=== PATIENT | female | born 1960 | race Caucasian/White ===

== ENCOUNTER 2016-09-11 14:40 | Inpatient (IN) | payer BC ==
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
[2016-09-11 15:13] LABS: Hematocrit 40 % (35-47); Hemoglobin 13.1 g/dl (12.0-16.0); Mean Corpuscular HGB Conc 33 g/dl (31-36); Mean Corpuscular Hemoglobin 30 pg (27-31); Mean Corpuscular Volume 91 fL (80-97); Mean Platelet Volume 8 um3 (7.4-10.4); Red Blood Count 4.38 10^6/ul (4.0-5.4); Red Cell Distribution Width 14 % (10.5-15); White Blood Count 15.7 10^3/ul (3.5-10.8)
--- NOTE | 2016-09-11 15:14 | RAD ---
Indication: Code kulkarni. Difficulty with speech. Unresponsive. History of EtOH. History of prior stroke. Comparison: None. Technique: Noncontrast CT vertex of skull through foramen magnum. Report: Approximate 1.6 cm AP by 3.4 cm transverse region of kulkarni matter white matter obscuration with hypodensity at the RIGHT parietal lobe from the cephalocaudal level of the carranza radiata to the centrum semiovale without mass effect most consistent with encephalomalacia related to a late subacute or chronic infarct. Negative for additional ivan matter white matter obscuration. Negative for intra or extra-axial hemorrhage. Unremarkable cerebral sulci, ventricles, and basal cisterns. Unremarkable orbital contents. Negative for calvarial or skull base fracture or suspicious focal osseous lesion. Clear visualized paranasal sinuses and mastoid air spaces. Negative for scalp hematoma. IMPRESSION: 1. Negative for intracranial hemorrhage. 2. Approximate 1.6 cm AP by 3.4 cm transverse region of kulkarni matter white matter obscuration with hypodensity at the RIGHT parietal lobe from the cephalocaudal level of the carranza radiata to the centrum semiovale without mass effect most consistent with encephalomalacia related to a late subacute or chronic infarct. Results discussed with Dr. Gonzalez 09/11/2016 3:09 PM EDT
[2016-09-11] MEDS ORDERED: Alteplase* 100 MG VIAL ONE (15:23)
[2016-09-11 15:30] LABS: ALT 13 U/L (7-52); AST 13 U/L (13-39); Albumin 4.1 g/dL (3.2-5.2); Alkaline Phosphatase 105 U/L (34-104); Anion Gap 8 mmol/L (2-11); BUN/Creatinine Ratio 6.1 (8-20); Blood Urea Nitrogen 6 mg/dL (6-24); CO2 Carbon Dioxide 25 mmol/L (22-32); Calcium 9.1 mg/dL (8.6-10.3); Chloride 107 mmol/L (101-111); Creatine Kinase 64 U/L (10-223); EGFR African American 75.2 (>60); EGFR Non-African American 58.5 (>60); Globulin 2.6 g/dL (2-4); Glucose 81 mg/dL (70-100); Magnesium 1.9 mg/dL (1.9-2.7); Potassium 3.7 mmol/L (3.5-5.0); Sodium 140 mmol/L (133-145); Total Protein 6.7 g/dL (6.4-8.9)
[2016-09-11] MEDS ORDERED: Iodixanol* (CONTRAST) 320 MG/ML 100 ML SDV IV ONE (15:36)
[2016-09-11] MEDS: ALTEPLASE IV ONE ×2 (15:37→17:03)
[2016-09-11 15:46] LABS: Urine Bilirubin Negative (Negative); Urine Glucose Negative (Negative); Urine Nitrite Negative (Negative)
[2016-09-11 15:58] LABS: Benzodiazepine Urine Screen None Detected (None Detect)
[2016-09-11 15:59] LABS: Alcohol < 10 mg/dL (<10)
[2016-09-11] MEDS ORDERED: ALTEPLASE IV ONE (16:00)
--- NOTE | 2016-09-11 16:36 | RAD ---
INDICATION: CVA. Status post TPA. COMPARISON: September 11, 2016 CT. TECHNIQUE: Multidetector CT images were obtained from the aortic arch to the vertex of the head with 80 mL Visipaque 320 IV contrast. Arterial phase of enhancement. Multiplanar reformation including maximum intensity projection. 3-D arterial volume rendering. Stenosis estimations based on denominator of distal arterial diameter. NECK ANGIOGRAM REPORT: Variant common origin of the RIGHT brachiocephalic and LEFT common carotid arteries from the aortic arch with associated calcific and noncalcific plaque without hemodynamic significant resulting ostial stenosis of either vessel. Occluded stent at the ostium and proximal segment of the LEFT subclavian artery. Patent LEFT common carotid to LEFT subclavian bypass graft. Patent RIGHT subclavian artery. Negative for significant atherosclerotic plaque, stenosis, or dissection at the RIGHT common or internal carotid arteries. The proximal segment of the RIGHT external carotid artery is occluded for a short segment with collateral reconstitution. Minimal calcific plaque at the LEFT carotid bulb and proximal external carotid artery with resulting approximate 70% short segment stenosis. Negative for LEFT internal carotid artery stenosis. Patent RIGHT dominant and smaller LEFT vertebral arteries with both vertebral arteries contributing to the basilar artery. Unremarkable cerebellar artery origins. Postsurgical change of anterior C6-C7 fusion with solid osseous fusion across the disc space. NECK ANGIOGRAM IMPRESSION: 1. No evidence for RIGHT or LEFT common or internal carotid artery stenosis. 2. Short segment occlusion of the proximal RIGHT external carotid artery with collateral reconstitution. 3. Approximate 70% short segment stenosis at the proximal segment of the LEFT external carotid artery. 4. Occluded stent at the ostium and proximal segment of the LEFT subclavian artery. Patent LEFT common carotid to LEFT subclavian bypass graft. HEAD ANGIOGRAM REPORT: No significant abnormality of the intracranial internal carotid arteries or the M1 or M2 segments of the middle cerebral arteries. Patent A1 and A2 anterior cerebral artery segments. No definitive anterior communicating artery visualized. Unremarkable basilar artery and cerebellar artery origins. Patent posterior cerebral arteries are supplied by the posterior circulation with normal variant hypoplastic or aplastic posterior communicating arteries. No intracranial aneurysm or vascular malformation evident. HEAD ANGIOGRAM IMPRESSION: No central intracranial large vessel arterial occlusion or stenosis. CPT II: CPT II Codes: 3100F
--- NOTE | 2016-09-11 17:28 | ED ---
Danette Solis Erika, scribed for Katherine Nieves MD on 09/11/16 at 1724 . Progress - Progress Note Progress Note: At 17:24 - updated with final plan. in agreement Pt to ICU s/p tpa Course/Dx - Diagnoses Provider Diagnoses: Acute CVA (cerebrovascular accident), Received intravenous tissue plasminogen activator (tPA) in emergency department Discharge - Discharge Plan Condition: Guarded Disposition: ADMITTED TO [facility] Referrals: Lester Lang DO [Primary Care Provider] - The documentation as recorded by the Danette ray Erika accurately reflects the service I personally performed and the decisions made by Ezequiel cummings Laura, MD.
[2016-09-11] MEDS ORDERED: Morphine INJ* 2 MG/ML 1 ML SYRINGE ONE ×2 (17:49→20:00)
[2016-09-11] MEDS ORDERED: Morphine INJ* 2 MG/ML 1 ML SYRINGE IV ONE (18:00)
[2016-09-11] MEDS ORDERED: LORazepam INJ* 2 MG/ML 1 ML VIAL IV PUSH PRN ×2 (18:07→20:10)
[2016-09-11] MEDS: NS 0.9% 1000 ML* 1,000 ML IV SCH ×2 (19:19→22:15)
[2016-09-11] MEDS: Morphine INJ* 2 MG/ML 1 ML SYRINGE IV PRN (19:53)
[2016-09-11] MEDS ORDERED: LORazepam INJ* 2 MG/ML 1 ML VIAL ONE (19:59)
[2016-09-11] MEDS ORDERED: Morphine INJ* 4 MG/ML 1 ML SYRINGE IV PRN (20:10)
[2016-09-11] MEDS ORDERED: NS 0.9% 250 ML* 250 ML IV ONE (23:00)
--- NOTE | 2016-09-11 23:36 | HP ---
HISTORY AND PHYSICAL: DATE OF ADMISSION: 09/11/16 PRIMARY CARE PROVIDER: Dr. Lester Lang. CHIEF COMPLAINT: "Stroke." HISTORY OF PRESENT ILLNESS: Bessie Hahn is a 56-year-old female with history of 2 ischemic CVAs in the past, the most recent one approximately a year ago. At that point, she was hospitalized in a hospital in [place]. The patient today was found by her unresponsive. Apparently, the patient's was working when Ms. Hahn called him saying that she feels unwell and her blood pressure must be high. When he came home to check on her, she was sitting in a chair unresponsive with a blood pressure cuff on her arm. She was brought into the emergency department for evaluation and she was deemed to be a good tPA candidate. The patient was noted to be nonverbal with left- sided hemiparesis. She also was noted to have decreased responsiveness. Dr. Gonzalez saw the patient in evaluation and recommended treatment with tPA. TPA was injected in the emergency department. The patient is currently being seen in the intensive care unit after transfer from the ED. Just during my evaluation, the patient was noted to be anxious and appeared to be crying. She received 1 mg of IV morphine. Right now, she is mildly sedated. PAST MEDICAL HISTORY: Obtained from past medical records include: 1. Depression with psychotic features with evaluation and mental health admission at the end of the year of 2015. 2. History of 2 strokes, both of them ischemic. At that point, the patient was evaluated in [place]. 3. 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 4. History of UT in 2004. 5. History of carpal tunnel release. 6. Hypertension. 7. Dyslipidemia. 8. Total abdominal hysterectomy and bilateral salpingo-oophorectomy. 9. Appendectomy. 10. x2. 11. Question of LV thrombus in the past. The patient in 2012 was on Coumadin that apparently was discontinued 2 years later. HOME MEDICATIONS: Include: 1. Budesonide 6 mg daily. 2. Nicotine inhaler on a p.r.n. basis. 3. Ibuprofen 10 mg every 8 hours p.r.n. 4. Vitamin B12 1000 mcg daily. 5. Vitamin D 1000 units daily. 6. Ambien 10 mg daily. 7. Lorazepam 0.5 mg b.i.d. 8. Gabapentin 10 mg 3 times a day p.r.n. 9. Plavix 75 mg daily. 10. Lipitor 40 mg daily. 11. Metoprolol tartrate 12.5 mg b.i.d. 12. Potassium chloride 30 mEq daily. 13. Zantac 150 mg at bedtime. 14. Effexor XR 75 mg daily. ALLERGIES: AMOXICILLIN, ATROPINE, AUGMENTIN, DEMEROL, LOMOTIL, HYDROXYZINE, SULFA DRUGS. AUGMENTIN caused rash, ATROPINE caused rash, BENADRYL caused also hives, LOMOTIL caused rash, HYDROXYZINE and SULFA DRUGS also caused rash. FAMILY HISTORY: Unobtainable from this nonverbal patient. SOCIAL HISTORY: As per patient's , the patient smokes 1 pack per day and she started when she was a teenager. She had history of alcohol dependence , but she quit in the year of 1999. She has history of occasionally smoking cannabis. REVIEW OF SYSTEMS: Unobtainable from this nonverbal patient. PHYSICAL EXAMINATION GENERAL: The patient is a 56-year-old female who is lying comfortably in bed. The patient appears in no acute distress. The patient appears to be alert, although mildly sedated after administration of morphine. VITAL SIGNS: Blood pressure of 137/56, heart rate of 60 and regular, respiratory rate 17, oxygen saturation 100% on 3 L of oxygen nasal cannula, temperature 97.8. HEENT: Head: Atraumatic, normocephalic. Eyes: Extraocular muscles appear to be intact. Pupils are equal and reactive. Oropharynx: Clear. Mucosa dry. NECK: Supple. No JVD, no bruit bilaterally. RESPIRATORY: Clear to auscultation bilaterally. CARDIOVASCULAR: Regular rate and rhythm. No murmur. ABDOMEN: Soft, nontender. Bowel sounds present in all 4 quadrants. EXTREMITIES: There is no edema. +2 pulses bilaterally. No clubbing cyanosis. NEUROLOGIC: Very limited. The patient appears to have generalized decrease in responsiveness and generalized weakness. The right hand irrigator is 4+/5 and there is no pronator drift. The left hand, she has minimal proximal strength and is trying to abduct her arm during the evaluation at 3+/5. The left hand is a 3/5. Bilateral lower extremities once again very difficult to evaluate. The patient appears to be at 4/5 in right lower extremity and 3+/5 in the left lower extremity. She appears to have Babinski positive bilaterally. Please note that occasionally during the evaluation, the patient is shaking as if she had rigors or chills but then when I asked her to relax, she is able to do that. She in fact relaxed very nicely after administration of morphine. Please note, on evaluation of the oral cavity she is unable to protrude her tongue to command. She opens her mouth to command. The tongue appears midline. Cranial nerves II through XII grossly appear intact since patient has no visible facial droop or facial asymmetry. It is very difficult to elicit any good response for the patient to evaluate her further. SKIN: On evaluation of the skin, no ecchymotic areas or rashes noted. DIAGNOSTIC STUDIES/LABORATORY DATA: White blood cell count of 15.7, hemoglobin of 13.1, hematocrit of 40, platelets of 357. Sodium was 140, potassium 3.7, chloride 107, carbon dioxide 25, BUN 6, creatinine 0.99. Liver function tests were unremarkable. Brain natriuretic peptide was 59, beta HCG 4.9, lactic acid 0.9. Urinalysis was unremarkable apart from low specific gravity at 1.005. Urine toxicology report was grossly unremarkable. Head CTA obtained in the emergency department showed no central intracranial large vessel arterial occlusion or stenosis. The neck CT angiogram showed "no evidence of right or left common internal carotid artery stenosis. Short segment occlusion of the proximal right external carotid artery with collateral reconstitution. Approximately 70% short segment stenosis at the proximal segment of the left external carotid artery. Occluded stent in the ostium of the proximal segment of the left subclavian artery. Patent left common carotid to left subclavian bypass graft. " The patient's EKG showed normal sinus rhythm with a heart rate of 74 beats per minute with negative T-waves in leads V3 to V5. Comparing with prior EKGs from 2015, the changes are chronic. Brain CT obtained in the ED, impression: "Negative for intracranial hemorrhage. Approximately 1.6 cm AP to 3.4 cm transverse region of white matter obscuration with hypodensity at the right parietal lobe from cephalocaudal level of the carranza radiata to the centrum semiovale without mass effect most consistent with encephalomalacia related to subacute or chronic infarct." ASSESSMENT AND PLAN: This 56-year-old female who presents with symptoms of cerebrovascular accident. The patient is going to be admitted to the intensive care unit for tPA protocol. Neuro checks are going to be ordered every 1 hour. The patient is going to be on bed rest. Neurology consult is appreciated and Dr. Gonzalez saw patient in consultation already. In regards to history of anxiety, the patient is going to be placed on Ativan intravenously on a p.r.n. basis as well as morphine for pain control. For GI protection while n.p.o., the patient is going to be placed on Protonix intravenously. The patient also is going to be placed on for speech therapy evaluation as well as physical therapy evaluation and occupational therapy evaluation in the morning. We will try to continue to titrate patient's intravenous fluids to keep her blood pressures above 140 range. Currently, the patient's systolic pressure is 127. For DVT prophylaxis, the patient already received tPA. Sequential compression devices were ordered. The patient's code status is full. Her surrogate is her , Devon. TIME SPENT: Approximately 62 minutes were spent on admission of this patient, more than half the time was spent in evaluation of the patient ICU. CC: Dr. Gonzalez; Dr. Lester Lang* [id number]/[facility] #: [id number] MTDD
--- NOTE | 2016-09-12 00:34 | CONS ---
CONSULTATION REPORT: DATE OF CONSULT: DATE OF DICTATION: 09/11/16 PATIENT OF: Dr. Krishnamurthy. HISTORY: This is a 56-year-old right-handed woman with known prior stroke who presented today at [facility] to with sudden onset of left hemiparesis. She had called her and she felt as if her blood pressure was very high. He came immediately in within minutes and found her collapsed on the floor with the blood pressure cuff on. She was able to move her right side at that time, but could not speak well. Then, he called for an ambulance and she was brought into the hospital, and she had prior stroke, but none for more than 2 years. She had an episode of confusion back in 2014 and was seen by the [facility] up at [place] and no stroke was found. However, prior to that, she had left- sided weakness secondary to a large vessel of stroke at that point in time. PAST MEDICAL HISTORY: She has past history of what is labeled in her past chart as 2 strokes and she has had subclavian artery blockage and went through a stent procedure up at [facility] and then she underwent a subclavian artery bypass. 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 She has had recurrent hypokalemia, hypertension, and hyperlipidemia. She has had a psych hospitalization in March of 2016 for suicidal ideation and has had prior evaluation in 1999 for alcohol detox and depression. MEDICATIONS: Include: 1. Budesonide 6 mg daily. 2. Nicotine inhaler 10 mg p.r.n. 3. Vitamin B12 1000 mcg daily. 4. Vitamin D 1000 mg daily. 5. Ambien 10 mg p.r.n. at bedtime. 6. Lorazepam 0.5 mg b.i.d. 7. Plavix 75 mg daily. 8. Lipitor 40 mg daily. 9. Metoprolol 12.5 mg b.i.d. 10. Ranitidine 20 mg at bedtime. 11. Potassium 40 mEq daily. 12. Venlafaxine 75 mg daily. ALLERGIES: She is allergic to AMOXICILLIN, ATROPINE, CLAVULANIC ACID, DIPHENHYDRAMINE. FAMILY HISTORY: She was unable to give a history. SOCIAL HISTORY: She has past history of alcohol dependence and used to smoke cannabis in the past. She is a one pack per day cigarette smoker. Her has told me that they have been having significant marital difficulties with recent arguments yesterday and today and she had an argument with her daughter this morning. REVIEW OF SYSTEMS: She was unable to give any review of systems. PHYSICAL EXAM: On exam, temperature 97.4, pulse 67, respirations 16, blood pressure 121/80. I evaluated her several times today 3:00, 3:30 to 3:40 and then at 5:30. Her initial NIH stroke scale was 24 which will be described in a bit and is documented in the chart. Immediately prior to receiving TPA, her exam is as follows: She was opening her eyes to command and could squeeze fingers on the right side. She did not speak, but nodded her head briefly yes and seen to mouth words. Cranial nerves II through XII were intact other than left facial weakness. Initially when I first saw her, she had downward gaze, but this is not present immediately prior to CT scan. Pupils were equal, round , and reactive to light and she reacted to threat bilaterally. Motor exam: She was able to move her right arm and leg against gravity and could wiggle tones on the right to command. She had no strength in the left arm. She initially could not move at all on the left, but then wiggled toes and had some slight movement against gravity. She had decreased sensation to light touch as best I can tell on the left side, but not the right side. Reflexes were 2. Toes were downgoing. Chest: Clear. Cardiovascular: Regular rate and rhythm. Abdomen is soft with positive bowel sounds. When I saw her at 5:30, she could say her name when asked, but just said the first syllable and was hesitant and spoken in an odd way. There was also some fluctuation in her exam at that point on the right side. She could not lift her right arm up against resistance but when held up, it did not drop down. She could wiggle her toes and have a family life counselor in her right hand and she could wiggle her left toes. DIAGNOSTIC STUDIES/LAB DATA: Her CT scan showed a stroke of indeterminate age in her right parietal lobe and had no prior scans for comparison. I contacted Dr. Chavez because prior CT scans were obtained up at [facility] and they faxed them to [facility] and he compared both and there was an old stroke dating back at least 2014 and was not anything that had occurred within the past few weeks' time. She also had a CTA, which did not show any intracranial or carotid occlusion, but showed her subclavian bypass as well as clotting of her stent, which is a prior finding. Dr. Chavez had called him back after the CTA was done and we compared those films. She had a white count of 15.7, hematocrit of 40, platelets of 357. INR is 0.98. She had normal CMP other than creatinine 0.99, alk phos of 105. Beta HCG was 4.9. Her UA was normal. Toxicology was sent and it was negative as well as negative serum alcohol. ASSESSMENT: The patient received TPA beginning roughly within 1 hour and 45 minutes to 2 hours of symptom onset after discussion of the pros and cons with the . I have also discussed this to that given her history and also the stress she is under as well as her exam especially up in the ICU, there were some increase inconsistencies and she is clearly a risk for stroke and this may be a stroke, but this could either be functional overlay in addition to stroke or this could be completely functional. I discussed that TPA is very time sensitive and given the degree of her symptoms, it made more sense to treat her and if this is not a stroke, the risk of bleeding is significantly less, but if this was a stroke which was at that time a most likely possibility, then delay could reach a significant residual. She will need a followup MRI scan tomorrow afternoon and this will help explore things out further and she is going to continue receiving benzodiazepines in the hospital. I discussed the case with Dr. Krishnamurthy. Thank you for sharing her case. TIME SPENT: More than 2 hours of time was spent in direct patient care on this patient. [id number]/[facility] #: [id number] TROY
[2016-09-12] MEDS: NS 0.9% 1000 ML* 1,000 ML IV SCH ×4 (03:47→21:44)
[2016-09-12 06:08] LABS: Hematocrit 33 % (35-47); Hemoglobin 10.6 g/dl (12.0-16.0); Mean Corpuscular HGB Conc 32 g/dl (31-36); Mean Corpuscular Hemoglobin 30 pg (27-31); Mean Corpuscular Volume 92 fL (80-97); Mean Platelet Volume 8 um3 (7.4-10.4); Red Blood Count 3.58 10^6/ul (4.0-5.4); Red Cell Distribution Width 14 % (10.5-15); White Blood Count 7.1 10^3/ul (3.5-10.8)
[2016-09-12 06:30] LABS: BUN/Creatinine Ratio 8.1 (8-20); Calcium 7.7 mg/dL (8.6-10.3); EGFR African American 88.4 (>60); EGFR Non-African American 68.8 (>60); Potassium 3.5 mmol/L (3.5-5.0)
[2016-09-12] MEDS: Pantoprazole TAB (NF) 40 MG TAB PO SCH (08:00)
[2016-09-12] MEDS: Morphine INJ* 2 MG/ML 1 ML SYRINGE IV PRN (08:44)
[2016-09-12] MEDS: Nicotine PATCH 21 MG/24 HR* PATCH TRANSDERM SCH (08:49)
--- NOTE | 2016-09-12 12:08 | RAD ---
HISTORY: Stroke, follow-up tPA COMPARISONS: September 11, 2016 CT TECHNIQUE: The following sequences were obtained of the head: Sagittal T1-weighted images, axial T2-weighted images, axial FLAIR images, axial susceptibility weighted images, axial T1-weighted images. Additionally, axial diffusion-weighted images were obtained with calculated apparent diffusion coefficients. FINDINGS: HEMORRHAGE/INFARCT: There is no hemorrhage or acute infarct. MASSES/SHIFT: There is no mass or shift. EXTRA-AXIAL SPACES/MENINGES: There are no extra-axial fluid collections. SULCI AND VENTRICLES: The sulci and ventricles are normal in size and position for the patient's stated age. CEREBRUM: There is right anterior parietal encephalomalacia suggestive of remote infarct BRAINSTEM: There are no focal parenchymal abnormalities. CEREBELLUM: There are no focal parenchymal abnormalities. The cerebellar tonsils are normal in size and position. SELLA: The sella is normal. PINEAL: The pineal region is clear. CP ANGLE/TEMPORAL BONES: The labyrinthine structures are grossly normal. VESSELS: Normal flow-voids are noted within the visualized vertebral vasculature. DIFFUSION ABNORMALITIES: There are no diffusion abnormalities. PARANASAL SINUSES/MASTOIDS: The paranasal sinuses are clear. ORBITS: The orbits are unremarkable. BONES AND SOFT TISSUE: No bone or soft tissue abnormalities are noted. OTHER: None IMPRESSION: 1. RIGHT ANTERIOR PARIETAL ENCEPHALOMALACIA SUGGESTIVE OF REMOTE INFARCT. 2. THERE IS NO RESTRICTED DIFFUSION TO SUGGEST ACUTE INFARCT.
[2016-09-12] MEDS ORDERED: Gabapentin CAP(*) 100 MG PO PRN (16:39)
--- NOTE | 2016-09-12 16:46 | ECHO ---
Patient: EVELINA BAEZ [facility] Rec#: [id number] : 1960 Date: 09/12/2016 Age: 56y Height: 149.86 cm / 59.0 in Weight: 53.98 kg / 119.0 lbs Sex: F BSA: 1.48 Room#: ICU 1 Admit Date#: 09/11/2016 Type: Inpatient Referring: Aneesh Lara MD Reading: Viviana Hemphill MD Manager Simulation: Sarah Uriostegui,RD,RDMS CC: Lester Lang DO Transthoracic Echocardiogram Indication: CVA BP: 97/59 HR: 63 Rhythm: NSR Indications Cerebrovascular Disease Findings History: CVA x2, subclavian stenosis and bypass, HI, HTN, HLD, smoker. Technical Comments: The study quality is fair. Completed 1630 Left Ventricle: The left ventricular chamber size is normal. There is no left ventricular hypertrophy. There is a focal wall motion abnormality present.Small akinetic area on the inferior wall seen on 2 chamber view 3/4 from the base. The estimated ejection fraction is 55-60%. There is no consistent Doppler evidence of clinically significant diastolic dysfunction. The patient was unable to perform a Valsalva maneuver. The mid inferior, and apical inferior wall segments are hypokinetic (score 2). Overall wallmotion score index is 2.00 Left Atrium: The left atrial chamber size is normal. Right Ventricle: The right ventricular chamber size and systolic function are within normal limits. Right Atrium: The right atrial cavity size is normal. Aortic Valve: There is no evidence of aortic valve thickening. Systolic excursion of the aortic valve is normal. There is no evidence of aortic regurgitation. There is no evidence of aortic stenosis. Mitral Valve: The mitral valve leaflets are mildly thickened. There is a trace of mitral regurgitation. There is no evidence of mitral stenosis. Tricuspid Valve: The tricuspid valve leaflets are normal. There is mild to moderate tricuspid regurgitation. There is evidence of mild pulmonary hypertension. Pulmonic Valve: The pulmonic valve structure is not well visualized. Pericardium: There is no significant pericardial effusion. Aorta: The aortic root appears normal. There is no dilatation of the aortic arch. Pulmonary Artery: The main pulmonary artery is not well visualized. Venous: The inferior vena cava appears normal in size. There is a greater than 50% respiratory change in the inferior vena cava dimension. Conclusions There is a focal wall motion abnormality present.Small akinetic area on the inferior wall seen on 2 chamber view 3/4 from the base. The estimated ejection fraction is 55-60%. Normal left ventricular diastolic filling is observed. The right ventricular chamber size and systolic function are within normal limits. There is a trace of mitral regurgitation. There is mild to moderate tricuspid regurgitation. There is evidence of mild pulmonary hypertension: 37 mmHg. No prior study to compare. Measurements Name Value Normal Range RVIDd (AP) 2D 2.5 cm (0.9 - 2.6) RVDdMajor (2D) 2 cm (2.2 - 4.4) RAd ISD 4CH 3.8 cm (3.4 - 4.9) RA (A4C)W 2.9 cm (2.9 - 4.6) IVSd (2D) 1 cm (0.6 - 1) LVPWd (2D) 1 cm (0.6 - 1) LVIDd (2D) 3.4 cm (3.6 - 5.4) LVIDs (2D) 2.8 cm - LV FS (2D) 18 % (25 - 45) Aortic Annulus 2 cm (1.4 - 2.6) Ao root diameter (2D) 2.7 cm (2.1 - 3.5) Ascending Ao 2.7 cm (2.1 - 3.4) Aortic arch 3.2 cm (1.8 - 3.4) LA dimension (AP) 2D 2.9 cm (2.3 - 3.8) LAd ISD 4CH 4.3 cm (2.9 - 5.3) LA ISD 4CH W 3.6 cm (2.5 - 4.5) Name Value Normal Range LA ESV SP 4CH (A/L) 31.65 ml - LA ESV SP 2CH (A/L) 32.88 ml - LA ESV BP (A/L) 32.48 ml - LA ESV BP (A/L) index 22 ml/m2 - LA ESV SP 4CH (MOD) 29.48 ml - LA ESV SP 2CH (MOD) 31.24 ml - Name Value Normal Range MV E-wave Vmax 0.9 m/sec - MV deceleration time 155 msec - MV A-wave Vmax 0.8 m/sec - MV E:A ratio 1.1 ratio - P. vein S-wave Vmax 1 m/sec - P. vein D-wave Vmax 0.7 m/sec - P. vein A-wave duration 107 msec - LV septal e' Vmax 0.09 m/sec - LV lateral e' Vmax 0.08 m/sec - LV E:e' septal ratio 10 ratio - LV E:e' lateral ratio 11.3 ratio - Name Value Normal Range AV Vmax 1.5 m/sec - AV VTI 30.4 cm - AV peak gradient 9 mmHg - AV mean gradient 3.7 mmHg - LVOT Vmax 1.1 m/sec - LVOT VTI 18.5 cm - LVOT peak gradient 5 mmHg - LVOT mean gradient 1.8 mmHg - ROSALIND Vmax 1.1 m/sec - Name Value Normal Range TR Vmax 2.9 m/sec - TR peak gradient 34 mmHg - RAP 3 mmHg - RVSP 37 mmHg - IVC diameter 1.7 cm - Name Value Normal Range PV Vmax 0.7 m/sec - PV peak gradient 2 mmHg - Wallmotion BAS Not Seen BA Not Seen BAL Not Seen ISAC Not Seen BI Not Seen BIS Not Seen MAS Not Seen MA Not Seen MAL Not Seen MIL Not Seen HI Hypokinetic MIS Not Seen Not Seen AA Not Seen AL Not Seen AI Hypokinetic APEX Not Seen
--- NOTE | 2016-09-12 16:47 | PN ---
Subjective Date of Service: 09/12/16 Interval History: Feels sleepy. No pain. Denies MADDEN, vision changes, weakness No complaints Objective Active Medications: Atorvastatin Calcium (Lipitor*) 40 mg PO DAILY [facility] Budesonide (Budesonide Cap(Nf)) 6 mg PO DAILY [facility] PRN Reason: Protocol Clopidogrel Bisulfate (Plavix Tab*) 75 mg PO DAILY [facility] Gabapentin (Neurontin Cap(*)) 100 mg PO TID PRN PRN Reason: PAIN Sodium Chloride (Ns 0.9% 1000 Ml*) 1,000 mls @ 200 mls/hr IV PER RATE [facility] Last Admin: 09/12/16 15:35 Dose: 200 mls/hr Lorazepam (Ativan Tab(*)) 0.5 mg PO BID [facility] Nicotine (Nicotine Patch 21 Mg/24 Hr*) 1 patch TRANSDERM Q24H [facility] Last Admin: 09/12/16 08:49 Dose: 1 patch Pantoprazole Sodium (Protonix Tab (Nf)) 40 mg PO DAILY@0730 [facility] Last Admin: 09/12/16 08:00 Dose: Not Given Pharmacy Profile Note (Nicotine Patch Removal Note*) 1 note PATCH OFF 2100 [facility] Ranitidine HCl (Zantac Tab (Nf)) 300 mg PO BEDTIME [facility] PRN Reason: Protocol Venlafaxine HCl (Effexor Xr Cap*) 75 mg PO DAILY WITH MEAL [facility] Vital Signs 09/11/16 09/11/16 09/11/16 17:25 17:39 17:45 Temperature 97.3 F Pulse Rate 65 60 Respiratory 19 17 Rate Blood Pressure 149/81 122/87 (mmHg) O2 Sat by Pulse 100 100 Oximetry 09/11/16 09/11/16 09/11/16 18:00 18:15 18:19 Temperature Pulse Rate 60 59 Respiratory 19 11 18 Rate Blood Pressure 133/62 141/66 (mmHg) O2 Sat by Pulse 100 99 Oximetry 09/11/16 09/11/16 09/11/16 18:30 18:45 19:00 Temperature Pulse Rate 60 59 66 Respiratory 14 13 14 Rate Blood Pressure 123/80 121/80 136/85 (mmHg) O2 Sat by Pulse 100 99 100 Oximetry 09/11/16 09/11/16 09/11/16 19:21 19:30 19:45 Temperature Pulse Rate 66 67 68 Respiratory 20 16 18 Rate Blood Pressure 150/74 90/60 (mmHg) O2 Sat by Pulse 99 98 99 Oximetry 09/11/16 09/11/16 09/11/16 19:47 19:53 20:00 Temperature 97.4 F Pulse Rate 115 120 Respiratory 25 20 34 Rate Blood Pressure 128/81 (mmHg) O2 Sat by Pulse 98 97 Oximetry 09/11/16 09/11/16 09/11/16 20:10 20:15 20:30 Temperature Pulse Rate 78 77 Respiratory 40 18 16 Rate Blood Pressure (mmHg) O2 Sat by Pulse 97 95 Oximetry 09/11/16 09/11/16 09/11/16 20:45 21:00 21:15 Temperature Pulse Rate 74 73 73 Respiratory 13 15 15 Rate Blood Pressure 94/71 (mmHg) O2 Sat by Pulse 95 91 93 Oximetry 09/11/16 09/11/16 09/11/16 21:30 21:31 21:45 Temperature Pulse Rate 73 73 67 Respiratory 15 14 14 Rate Blood Pressure 80/50 83/53 (mmHg) O2 Sat by Pulse 92 92 98 Oximetry 09/11/16 09/11/16 09/11/16 22:00 22:15 22:30 Temperature Pulse Rate 70 67 67 Respiratory 14 13 14 Rate Blood Pressure 87/57 85/51 (mmHg) O2 Sat by Pulse 98 98 98 Oximetry 09/11/16 09/11/16 09/11/16 22:32 22:45 22:58 Temperature Pulse Rate 66 66 Respiratory 14 14 18 Rate Blood Pressure 101/60 (mmHg) O2 Sat by Pulse 98 98 Oximetry 09/11/16 09/11/16 09/11/16 23:00 23:01 23:15 Temperature Pulse Rate 66 67 65 Respiratory 14 14 13 Rate Blood Pressure 96/61 (mmHg) O2 Sat by Pulse 98 98 99 Oximetry 09/11/16 09/11/16 09/11/16 23:26 23:30 23:45 Temperature 97.3 F Pulse Rate 67 64 Respiratory 14 12 Rate Blood Pressure 87/55 (mmHg) O2 Sat by Pulse 98 99 Oximetry 09/12/16 09/12/16 09/12/16 00:00 00:01 00:15 Temperature Pulse Rate 68 69 61 Respiratory 13 12 14 Rate Blood Pressure 83/56 (mmHg) O2 Sat by Pulse 98 98 100 Oximetry 09/12/16 09/12/16 09/12/16 00:30 00:45 01:00 Temperature Pulse Rate 63 65 68 Respiratory 15 14 13 Rate Blood Pressure 106/60 91/55 (mmHg) O2 Sat by Pulse 99 98 98 Oximetry 09/12/16 09/12/16 09/12/16 01:15 01:29 01:45 Temperature Pulse Rate 64 67 66 Respiratory 13 13 13 Rate Blood Pressure (mmHg) O2 Sat by Pulse 98 99 97 Oximetry 09/12/16 09/12/16 09/12/16 02:00 02:15 02:30 Temperature Pulse Rate 65 65 62 Respiratory 12 12 13 Rate Blood Pressure 84/54 (mmHg) O2 Sat by Pulse 96 96 99 Oximetry 09/12/16 09/12/16 09/12/16 02:45 03:00 03:15 Temperature Pulse Rate 63 71 60 Respiratory 12 12 11 Rate Blood Pressure 87/54 (mmHg) O2 Sat by Pulse 100 97 97 Oximetry 09/12/16 09/12/16 09/12/16 03:30 03:45 04:00 Temperature 97.0 F Pulse Rate 66 61 61 Respiratory 13 12 13 Rate Blood Pressure 84/50 (mmHg) O2 Sat by Pulse 97 98 96 Oximetry 09/12/16 09/12/16 09/12/16 05:00 06:00 07:00 Temperature Pulse Rate 62 63 68 Respiratory 12 12 13 Rate Blood Pressure 93/59 90/64 96/59 (mmHg) O2 Sat by Pulse 98 99 93 Oximetry 09/12/16 09/12/16 09/12/16 07:39 08:00 08:44 Temperature 98.1 F Pulse Rate 58 Respiratory 12 17 Rate Blood Pressure 100/61 (mmHg) O2 Sat by Pulse 96 Oximetry 09/12/16 09/12/16 09/12/16 08:52 09:00 10:00 Temperature Pulse Rate 65 71 Respiratory 18 13 17 Rate Blood Pressure 136/72 114/66 (mmHg) O2 Sat by Pulse 94 96 Oximetry 09/12/16 09/12/16 09/12/16 11:00 12:00 12:04 Temperature 98 F Pulse Rate 64 Respiratory 15 15 Rate Blood Pressure 98/58 117/60 (mmHg) O2 Sat by Pulse 96 Oximetry 09/12/16 09/12/16 09/12/16 12:06 13:00 14:00 Temperature Pulse Rate 65 78 72 Respiratory 15 15 13 Rate Blood Pressure 119/56 122/67 (mmHg) O2 Sat by Pulse 93 97 95 Oximetry 09/12/16 09/12/16 15:00 16:00 Temperature 97.9 F Pulse Rate 63 65 Respiratory 14 18 Rate Blood Pressure 97/59 97/61 (mmHg) O2 Sat by Pulse 95 94 Oximetry Oxygen Devices in Use Now: None Appearance: sitting up in bed, interacts but falls back asleep quickly Eyes: No Scleral Icterus, PERRLA Ears/Nose/Mouth/Throat: Clear Oropharnyx, Mucous Membranes Moist Neck: NL Appearance and Movements; NL JVP, Trachea Midline Respiratory: Symmetrical Chest Expansion and Respiratory Effort, - - scattered rhonchi Cardiovascular: NL Sounds; No Murmurs; No JVD, RRR Abdominal: NL Sounds; No Tenderness; No Distention, No Hepatosplenomegaly Lymphatic: No Cervical Adenopathy Extremities: No Edema Neurological: Alert and Oriented x 3 Result Diagrams: 09/12/16 05:52 09/12/16 05:52 Microbiology and Other Data: Microbiology 09/11/16 19:30 Nasal Screen MRSA (PCR)([facility]) - Final Nasal Mrsa Negative Assess/Plan/Problems-Billing Assessment: 56 yo F h/o multiple ischemic CVAs, depression with psychotic features, subclavian stenosis, CAD/DC, HTN p/w AMS/decreased level of consciousness and left hemiparesis. At time of admission it was unclear whether this represented a focal neurologic deficit or other psychiatric disease and pt received tPA. - Patient Problems (1) Focal neurological deficit Comment: MRI without acute CVA. Seems this was more psychiatric in nature. Resolved with tpa but also ativan Pt has received morphine intermittently and is more sedated. Will d/c morphine now In past psychotic features were in setting of discord with repeat CT this evening s/p receipt of tpa (24 hrs) (2) Depression Comment: restart gabapentin and venlafaxine (3) Hypertension Comment: holding metoprolol basedon relatively soft BPs restart budesonide (4) History of CVA (cerebrovascular accident) Comment: restart plavix (5) DVT prophylaxis Comment: SCDs in setting of recent tpa
--- NOTE | 2016-09-12 18:55 | RAD ---
Indication: 24 hours status post TPA administration. Assess for intracranial hemorrhage. Comparison: September 12, 2016 MRI. September 11, 2016 CT. Technique: Noncontrast CT vertex of skull through foramen magnum. Report: Negative for intra or extra-axial hemorrhage. Encephalomalacia at the anterior RIGHT parietal lobe without change. No new region of kulkarni matter white matter obscuration compared with the recent prior exams. Unremarkable cerebral sulci, ventricles, and basal cisterns. Unremarkable orbital contents. IMPRESSION: Negative for intracranial hemorrhage post TPA administration.
[2016-09-12] MEDS ORDERED: Nicotine Patch Removal NOTE PATCH OFF SCH (21:00)
[2016-09-12] MEDS ORDERED: Metoprolol Tartrate TAB* 25 MG PO SCH (21:00)
[2016-09-12] MEDS ORDERED: Famotidine TAB* 20 MG PO SCH (21:00)
[2016-09-12] MEDS: LORazepam TAB(*) 0.5 MG PO SCH (21:36)
--- NOTE | 2016-09-13 00:13 | PN ---
NEUROLOGICAL FOLLOWUP: DATE OF SERVICE: DATE OF DICTATION: 09/12/2016. HISTORY: Bessie is speaking more and has no specific complaints. She remains somewhat tired and received some morphine for head and neck pain earlier today. She has received a TPA yesterday evening and will be going back on her Plavix after a negative CT scan. Once the CT scan is negative, she will be going back to her oral medications. I spoke to Dr. Lara about making sure she is on a benzodiazepine. If she was on that at home, I believe she was on lorazepam at home. PHYSICAL EXAMINATION: On exam, temperature 98, pulse 72, respiration 13, blood pressure 122/67. She is alert and oriented. She follows commands and speaks, although she has a paucity of speech. She has full strength on the right arm and has a fluctuating motor exam on the left. She sometimes is not able to raise her she will keep it up and then when I push it down, she holds it against resistance and will rebound up. Sensation grossly intact to light touch. Reflexes were 2 and equal. Toes were downgoing. Neck: Supple. Chest : Clear. Cardiovascular: Regular rate and rhythm. Abdomen: Soft with positive bowel sounds. DIAGNOSTIC STUDIES/LAB DATA: Her MRI scan showed an old stroke, but no new findings. IMPRESSION: She is going to need a CT scan 24 hours after her TPA and be resumed on her Plavix. I discussed with the hospitalist and also her that there may be some functional overlying stress contributing to some if not all of her hemiparesis at this point. It would make sense to have psychiatry involved as well. She should have a cardiac echo as part of her overall test and she should have fasting cholesterol in the morning. Thank you for sharing her case. [id number]/[facility] #: [id number] TROY
[2016-09-13] MEDS: NS 0.9% 1000 ML* 1,000 ML IV SCH (02:34)
[2016-09-13 06:32] LABS: Hematocrit 33 % (35-47); Hemoglobin 10.5 g/dl (12.0-16.0); Mean Corpuscular HGB Conc 32 g/dl (31-36); Mean Corpuscular Hemoglobin 30 pg (27-31); Mean Corpuscular Volume 93 fL (80-97); Mean Platelet Volume 8 um3 (7.4-10.4); Red Blood Count 3.56 10^6/ul (4.0-5.4); Red Cell Distribution Width 14 % (10.5-15)
[2016-09-13 06:47] LABS: BUN/Creatinine Ratio 11.3 (8-20); EGFR African American 110.3 (>60); EGFR Non-African American 85.8 (>60); HDL Cholesterol 38.7 mg/dL; Potassium 3.5 mmol/L (3.5-5.0)
[2016-09-13] MEDS ORDERED: Nicotine Inhaler* 10 MG AMP INH PRN (08:20)
[2016-09-13] MEDS: Nicotine PATCH 21 MG/24 HR* PATCH TRANSDERM SCH (08:29)
[2016-09-13] MEDS ORDERED: Venlafaxine EXT RELEASE CAP* 75 MG PO SCH (08:30)
[2016-09-13] MEDS: Pantoprazole TAB (NF) 40 MG TAB PO SCH (08:30)
[2016-09-13] MEDS: LORazepam TAB(*) 0.5 MG PO SCH (08:30)
[2016-09-13] MEDS ORDERED: Atorvastatin* 40 MG TAB PO SCH (09:00)
[2016-09-13] MEDS ORDERED: Clopidogrel TAB* 75 MG PO SCH (09:00)
[2016-09-13] MEDS ORDERED: Budesonide CAP(NF) 3 MG PO SCH (09:00)
[2016-09-13] MEDS ORDERED: ALTEPLASE IV ONE (11:00)
--- NOTE | 2016-09-13 11:12 | RAD ---
HISTORY: Bilateral rhonchi COMPARISONS: October 20, 2014 VIEWS: 2: Frontal dual-energy and lateral views of the chest. FINDINGS: CARDIOMEDIASTINAL SILHOUETTE: The cardiomediastinal silhouette is normal. HARMAN: The harman are normal. PLEURA: There is a small left pleural effusion LUNG PARENCHYMA: There is confluent alveolar opacification of left lung base ABDOMEN: The upper abdomen is clear. There is no subphrenic gas. BONES AND SOFT TISSUES: The patient is status post anterior cervical fusion OTHER: None. IMPRESSION: LEFT BASILAR CONSOLIDATION WITH A SMALL LEFT PLEURAL EFFUSION. RECOMMEND FOLLOW-UP UNTIL RESOLUTION TO UNDERLYING PULMONARY PARENCHYMAL PATHOLOGY
[2016-09-13] MEDS ORDERED: NS 0.9% 1000 ML* 1,000 ML IV SCH (14:00)
[2016-09-13] MEDS ORDERED: Levofloxacin TAB* 750 MG PO ONE (14:30)
[2016-09-13 15:12] VITALS: BP 124/85
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
== END 2016-09-13 17:00 | disposition home health service (06) | DRG 756 ==
LOC: ED 14:40 → ICU 17:10
PROVIDERS: ADMIT Internal Medicine; ATTEND Internal Medicine
DX: F44.7 Conversion disorder with mixed symptom presentation (principal); R40.2112 Coma scale, eyes open, never, at arrival to emergency department; R40.2212 Coma scale, best verbal response, none, at arrival to emergency department; J18.9 Pneumonia, unspecified organism; R47.01 Aphasia; G81.94 Hemiplegia, unspecified affecting left nondominant side; I25.2 Old myocardial infarction; Z79.02 Long term (current) use of antithrombotics/antiplatelets; E11.9 Type 2 diabetes mellitus without complications; J44.9 Chronic obstructive pulmonary disease, unspecified; M81.0 Age-related osteoporosis without current pathological fracture; Z82.3 Family history of stroke; R40.2362 Coma scale, best motor response, obeys commands, at arrival to emergency department; I10 Essential (primary) hypertension; E78.5 Hyperlipidemia, unspecified; Z88.2 Allergy status to sulfonamides; Z88.5 Allergy status to narcotic agent; Z88.8 Allergy status to other drugs, medicaments and biological substances; Z87.891 Personal history of nicotine dependence; F41.9 Anxiety disorder, unspecified; I25.10 Atherosclerotic heart disease of native coronary artery without angina pectoris; Z86.73 Personal history of transient ischemic attack (TIA), and cerebral infarction without residual deficits; F32.9 Major depressive disorder, single episode, unspecified
CPT/HCPCS: 36415; 70450; 70496; 70498; 70551; 71020; 80048; 80053; 80061; 80307; 80320; 81003; 82550; 83605; 83735; 83880; 84484; 84702; 85025; 85610; 87641; 93005; 93306; A9270-GY; G0480; J2060; J2270; J2997; Q9967

== ENCOUNTER 2021-04-23 20:45 | Observation (INO) ==
[2021-04-23 21:30] LABS: INR 1.09 (0.86-1.15)
[2021-04-23 21:31] LABS: ABS Eosinophils 0.3 10^3/ul (0-0.6); ABS Lymphocytes 1.7 10^3/ul (1.0-4.8); ABS Monocytes 0.5 10^3/ul (0-0.8); ABS Neutrophils 4.9 10^3/ul (1.5-7.7); Eosinophil % 3.6 %; Hematocrit 36 % (35-47); Hemoglobin 11.7 g/dL (12.0-16.0); Lymphocyte % 23.3 %; Mean Corpuscular HGB Conc 33 g/dL (31-36); Mean Corpuscular Hemoglobin 32 pg (27-31); Mean Corpuscular Volume 96 fL (80-97); Mean Platelet Volume 8.6 fL (7.4-10.4); Platelet Count 446 10^3/uL (150-450); Red Blood Count 3.71 10^6 /uL (3.70-4.87); Red Cell Distribution Width 15 % (10-15); White Blood Count 7.5 10^3/uL (3.5-10.8)
[2021-04-23 22:08] LABS: Albumin 3.8 g/dL (3.2-5.2); Calcium 9.5 mg/dL (8.6-10.3); Magnesium 1.8 mg/dL (1.9-2.7); Potassium 4.2 mmol/L (3.5-5.0); Total Bilirubin 0.4 mg/dL (0.2-1.0)
[2021-04-23 22:14] LABS: Albumin/Globulin Ratio 1.8 (1-3); Globulin 2.1 g/dL (2-4); Total Protein 5.9 g/dL (6.4-8.9); eGFR CKD-EPI 93.7 (>60)
[2021-04-23 22:27] LABS: TSH Ultra Thyroid Stim Horm 6.51 mcIU/mL (0.34-5.60)
[2021-04-23] MEDS ORDERED: Albuterol HFA INHALER 8 gm MDI INH PRN (23:20)
[2021-04-24] MEDS: Enoxaparin 40 MG/0.4 ML SYR SUBCUT SCH ×2 (00:08→19:54)
[2021-04-24] MEDS ORDERED: Nicotine GUM 4MG FRUIT FLAVOR PO PRN (00:24)
[2021-04-24 01:00] LABS: Free T3 3.3 pg/mL (2.5-3.9)
[2021-04-24 01:02] LABS: Free T4 0.82 ng/dL (0.61-1.12)
[2021-04-24] MEDS: Amoxicillin/Clavul 500/125 TAB (Augmentin 500 mg tab) PO SCH ×3 (03:09→19:54)
[2021-04-24 06:28] LABS: Calcium 9.3 mg/dL (8.6-10.3); Potassium 3.8 mmol/L (3.5-5.0)
[2021-04-24 06:33] LABS: eGFR CKD-EPI 86.7 (>60)
[2021-04-24] MEDS: Aspirin EC 81 mg TAB.EC (enteric coated) PO SCH (12:06)
[2021-04-24] MEDS ORDERED: LORazepam 2 mg VIAL 1 ml IV PUSH ONE (20:26)
[2021-04-24] MEDS ORDERED: Lorazepam PYXIS KEY PRN (20:26)
[2021-04-25 06:47] LABS: Hematocrit 37 % (35-47); Hemoglobin 12.3 g/dL (12.0-16.0); Mean Corpuscular HGB Conc 34 g/dL (31-36); Mean Corpuscular Hemoglobin 32 pg (27-31); Mean Corpuscular Volume 95 fL (80-97); Mean Platelet Volume 8.5 fL (7.4-10.4); Platelet Count 443 10^3/uL (150-450); Red Blood Count 3.85 10^6 /uL (3.70-4.87); Red Cell Distribution Width 14 % (10-15); White Blood Count 7.3 10^3/uL (3.5-10.8)
[2021-04-25 07:06] LABS: Calcium 9.7 mg/dL (8.6-10.3); Magnesium 1.9 mg/dL (1.9-2.7); Potassium 3.8 mmol/L (3.5-5.0); eGFR CKD-EPI 100.5 (>60)
[2021-04-25] MEDS: Aspirin EC 81 mg TAB.EC (enteric coated) PO SCH (08:16)
[2021-04-25] MEDS: Amoxicillin/Clavul 500/125 TAB (Augmentin 500 mg tab) PO SCH ×2 (08:16→21:24)
[2021-04-25] MEDS: Enoxaparin 40 MG/0.4 ML SYR SUBCUT SCH (21:19)
[2021-04-26] MEDS: Aspirin EC 81 mg TAB.EC (enteric coated) PO SCH (09:01)
[2021-04-26] MEDS: Amoxicillin/Clavul 500/125 TAB (Augmentin 500 mg tab) PO SCH ×2 (11:45→22:19)
[2021-04-26] MEDS: Enoxaparin 40 MG/0.4 ML SYR SUBCUT SCH (22:11)
[2021-04-27] MEDS: Amoxicillin/Clavul 500/125 TAB (Augmentin 500 mg tab) PO SCH ×2 (09:54→21:22)
[2021-04-27] MEDS: Aspirin EC 81 mg TAB.EC (enteric coated) PO SCH (09:54)
[2021-04-27] MEDS: Enoxaparin 40 MG/0.4 ML SYR SUBCUT SCH (21:22)
[2021-04-28] MEDS: Aspirin EC 81 mg TAB.EC (enteric coated) PO SCH (08:21)
[2021-04-28] MEDS: Amoxicillin/Clavul 500/125 TAB (Augmentin 500 mg tab) PO SCH ×2 (08:22→20:49)
[2021-04-28] MEDS: Enoxaparin 40 MG/0.4 ML SYR SUBCUT SCH (20:49)
[2021-04-29] MEDS: Amoxicillin/Clavul 500/125 TAB (Augmentin 500 mg tab) PO SCH ×2 (11:03→20:47)
[2021-04-29] MEDS: Aspirin EC 81 mg TAB.EC (enteric coated) PO SCH (11:06)
[2021-04-29 12:31] LABS: Calcium 9.8 mg/dL (8.6-10.3); Magnesium 1.8 mg/dL (1.9-2.7); Potassium 3.9 mmol/L (3.5-5.0); eGFR CKD-EPI 96.9 (>60)
[2021-04-29] MEDS ORDERED: Magnesium Sulfate IV 1GM/100ML 1 GM/100 ML BAG IV ONE (16:02)
[2021-04-29] MEDS: Enoxaparin 40 MG/0.4 ML SYR SUBCUT SCH (20:50)
[2021-04-30] MEDS: Aspirin EC 81 mg TAB.EC (enteric coated) PO SCH (09:27)
[2021-04-30] MEDS: Amoxicillin/Clavul 500/125 TAB (Augmentin 500 mg tab) PO SCH ×2 (09:27→21:46)
[2021-04-30] MEDS: Enoxaparin 40 MG/0.4 ML SYR SUBCUT SCH (21:32)
[2021-05-01] MEDS ORDERED: Midazolam 5 mg/5 ml VIAL 1 mg/ml 5 ml VIAL (5 mg) ONE (09:17)
[2021-05-01] MEDS ORDERED: Heparin 1,000 UNIT/ML 10 ml (10,000 UNITS) CATHLAB/DIALYSIS ONE (09:17)
[2021-05-01] MEDS ORDERED: fentaNYL 100 mcg/2 ml 50 MCG/ML VIAL ONE (09:17)
[2021-05-01] MEDS ORDERED: Heparin 2 UNITS/ML 1000 mls 2,000 ML IV ONE (09:17)
[2021-05-01] MEDS ORDERED: nitroGLYCERIN DRIP 25,000 MCG/250 ML BTL ONE (09:17)
[2021-05-01] MEDS ORDERED: Lidocaine 1% VIAL 10 MG/ML VIAL ONE (09:18)
[2021-05-01] MEDS ORDERED: Iohexol 350 (CONTRAST) 200 ML MDV IV ONE (09:18)
[2021-05-01] MEDS ORDERED: niCARdipine 0.1MG/ML IVPREMIX 20 MG/200 ML BAG IV ONE (09:19)
[2021-05-01] MEDS: Aspirin EC 81 mg TAB.EC (enteric coated) PO SCH (16:56)
[2021-05-01] MEDS: Enoxaparin 40 MG/0.4 ML SYR SUBCUT SCH (22:41)
[2021-05-02] MEDS: Aspirin EC 81 mg TAB.EC (enteric coated) PO SCH (09:30)
[2021-05-02] MEDS: Nystatin TOP POWDER 15 GM BTL TOPICAL SCH ×3 (11:38→20:43)
[2021-05-02] MEDS ORDERED: NS 0.9% 500 ml BAG 500 ML IV ONE (11:57)
[2021-05-02] MEDS: Enoxaparin 40 MG/0.4 ML SYR SUBCUT SCH (20:37)
[2021-05-03] MEDS ORDERED: Lactated Ringers 500 ml BAG 500 ML IV ONE (00:49)
[2021-05-03 05:33] LABS: Urine Appearance Turbid; Urine Bilirubin Negative (Negative); Urine Blood Negative (Negative); Urine Color Amber; Urine Glucose Negative (Negative); Urine Ketones Trace (Negative); Urine Nitrite Negative (Negative); Urine Protein Negative (Negative); Urine Specific Gravity 1.032 (1.002-1.030); Urine Urobilinogen Negative (Negative)
[2021-05-03 05:39] LABS: Urine Bacteria 1+ (Absent); Urine Red Blood Cell Absent (Absent); Urine Squamous Epithelial Cell Present (Absent); Urine White Blood Cell 2+(11-20/hpf) (Absent)
[2021-05-03] MEDS: Aspirin EC 81 mg TAB.EC (enteric coated) PO SCH (09:33)
[2021-05-03] MEDS: Nystatin TOP POWDER 15 GM BTL TOPICAL SCH ×3 (09:38→20:44)
[2021-05-03] MEDS: Enoxaparin 40 MG/0.4 ML SYR SUBCUT SCH (20:44)
[2021-05-03] MEDS: NS 0.9% 1000 ml BAG 1,000 ML IV SCH (21:19)
[2021-05-04] MEDS: NS 0.9% 1000 ml BAG 1,000 ML IV SCH (09:50)
[2021-05-04] MEDS: Aspirin EC 81 mg TAB.EC (enteric coated) PO SCH (09:51)
[2021-05-04] MEDS: Nystatin TOP POWDER 15 GM BTL TOPICAL SCH ×2 (14:35→21:41)
[2021-05-04 16:28] LABS: Calcium 8.5 mg/dL (8.6-10.3); Magnesium 1.6 mg/dL (1.9-2.7); eGFR CKD-EPI 74.6 (>60)
[2021-05-04] MEDS ORDERED: Magnesium Sulf 4 GM/100 ML IV 4,000 MG/100 ML BAG IVPB ONE (16:43)
[2021-05-04] MEDS: Potassium Chlor 20 meq TAB.ER PO SCH ×2 (17:01→21:40)
[2021-05-04] MEDS: cefTRIAXone 1 gm/50 mL NS BAG 1 GM/50 ML BAG IVPB SCH (17:01)
[2021-05-04] MEDS: Enoxaparin 40 MG/0.4 ML SYR SUBCUT SCH (21:46)
[2021-05-05 00:45] LABS: C Reactive Protein 58.38 mg/L (<8.01)
[2021-05-05] MEDS ORDERED: Potassium Chlor 20 meq TAB.ER PO ONE ×3 (00:50→13:00)
[2021-05-05] MEDS: NS 0.9% 1000 ml BAG 1,000 ML IV SCH ×2 (01:52→08:50)
[2021-05-05] MEDS ORDERED: NS 0.9% 500 ml BAG 500 ML IV ONE (03:20)
[2021-05-05 06:10] LABS: Calcium 7.9 mg/dL (8.6-10.3); Magnesium 2.6 mg/dL (1.9-2.7); Potassium 3.4 mmol/L (3.5-5.0)
[2021-05-05 06:15] LABS: eGFR CKD-EPI 101.4 (>60)
[2021-05-05] MEDS: Aspirin EC 81 mg TAB.EC (enteric coated) PO SCH (08:56)
[2021-05-05] MEDS: Nystatin TOP POWDER 15 GM BTL TOPICAL SCH ×3 (08:59→19:24)
[2021-05-05] MEDS: cefTRIAXone 1 gm/50 mL NS BAG 1 GM/50 ML BAG IVPB SCH (15:05)
[2021-05-05 17:39] LABS: Albumin 3.6 g/dL (3.2-5.2); Calcium 8.4 mg/dL (8.6-10.3); Potassium 4.2 mmol/L (3.5-5.0); Total Bilirubin 0.2 mg/dL (0.2-1.0)
[2021-05-05 17:40] LABS: ABS Eosinophils 0.1 10^3/ul (0-0.6); ABS Monocytes 0.2 10^3/ul (0-0.8); ABS Neutrophils 2.6 10^3/ul (1.5-7.7); Eosinophil % 1.7 %; Hematocrit 35 % (35-47); Lymphocyte % 26.2 %; Mean Corpuscular HGB Conc 31 g/dL (31-36); Mean Corpuscular Hemoglobin 32 pg (27-31); Mean Corpuscular Volume 101 fL (80-97); Mean Platelet Volume 8.7 fL (7.4-10.4); Nucleated Red Blood Cells % 0.1; Platelet Count 102 10^3/uL (150-450); Red Blood Count 3.46 10^6 /uL (3.70-4.87); Red Cell Distribution Width 15 % (10-15); White Blood Count 3.9 10^3/uL (3.5-10.8)
[2021-05-05 17:45] LABS: Albumin/Globulin Ratio 1.6 (1-3); Globulin 2.3 g/dL (2-4); Total Protein 5.9 g/dL (6.4-8.9); eGFR CKD-EPI 102.1 (>60)
[2021-05-05] MEDS: Enoxaparin 40 MG/0.4 ML SYR SUBCUT SCH (19:30)
[2021-05-06] MEDS: Aspirin EC 81 mg TAB.EC (enteric coated) PO SCH (09:09)
[2021-05-06 10:28] LABS: ABS Eosinophils 0.2 10^3/ul (0-0.6); ABS Lymphocytes 0.7 10^3/ul (1.0-4.8); ABS Monocytes 0.3 10^3/ul (0-0.8); ABS Neutrophils 2.6 10^3/ul (1.5-7.7); Eosinophil % 4.6 %; Hematocrit 33 % (35-47); Hemoglobin 11.1 g/dL (12.0-16.0); Lymphocyte % 17.4 %; Mean Corpuscular HGB Conc 33 g/dL (31-36); Mean Corpuscular Hemoglobin 32 pg (27-31); Mean Corpuscular Volume 96 fL (80-97); Mean Platelet Volume 8.1 fL (7.4-10.4); Platelet Count 240 10^3/uL (150-450); Red Blood Count 3.44 10^6 /uL (3.70-4.87); Red Cell Distribution Width 14 % (10-15); White Blood Count 3.8 10^3/uL (3.5-10.8)
[2021-05-06 10:45] LABS: Calcium 8.9 mg/dL (8.6-10.3); Potassium 3.6 mmol/L (3.5-5.0)
[2021-05-06] MEDS: cefTRIAXone 1 gm/50 mL NS BAG 1 GM/50 ML BAG IVPB SCH (16:18)
[2021-05-06] MEDS: Nystatin TOP POWDER 15 GM BTL TOPICAL SCH ×2 (16:18→23:06)
[2021-05-06] MEDS: Enoxaparin 40 MG/0.4 ML SYR SUBCUT SCH (23:06)
[2021-05-07 08:27] LABS: ABS Eosinophils 0.2 10^3/ul (0-0.6); ABS Lymphocytes 0.9 10^3/ul (1.0-4.8); ABS Monocytes 0.4 10^3/ul (0-0.8); ABS Neutrophils 1.9 10^3/ul (1.5-7.7); Eosinophil % 5.9 %; Hematocrit 33 % (35-47); Hemoglobin 11.3 g/dL (12.0-16.0); Lymphocyte % 26.8 %; Mean Corpuscular HGB Conc 34 g/dL (31-36); Mean Corpuscular Hemoglobin 32 pg (27-31); Mean Corpuscular Volume 95 fL (80-97); Mean Platelet Volume 8.4 fL (7.4-10.4); Platelet Count 212 10^3/uL (150-450); Red Cell Distribution Width 14 % (10-15); White Blood Count 3.4 10^3/uL (3.5-10.8)
[2021-05-07 08:37] LABS: Albumin 3.5 g/dL (3.2-5.2); Albumin/Globulin Ratio 1.7 (1-3); Globulin 2.1 g/dL (2-4); Potassium 3.3 mmol/L (3.5-5.0); Total Bilirubin 0.3 mg/dL (0.2-1.0); Total Protein 5.6 g/dL (6.4-8.9); eGFR CKD-EPI 102.9 (>60)
[2021-05-07] MEDS: Aspirin EC 81 mg TAB.EC (enteric coated) PO SCH (09:53)
[2021-05-07] MEDS: Nystatin TOP POWDER 15 GM BTL TOPICAL SCH ×2 (09:55→16:08)
[2021-05-07] MEDS ORDERED: Potassium Chlor 20 meq TAB.ER PO SCH (15:00)
[2021-05-07 15:28] LABS: Rapid COVID-19 Molecular Undetected (Undetected)
[2021-05-07] MEDS: cefTRIAXone 1 gm/50 mL NS BAG 1 GM/50 ML BAG IVPB SCH (16:09)
[2021-05-07 16:22] VITALS: BP 81/51
== END 2021-05-08 01:21 | disposition short-term general hospital (02) ==
LOC: ED 20:45 → MEDTELE 20:45 → SUATTDRO 04-24 08:30
PROVIDERS: ADMIT Student in an Organized Health Care Education/Training Program; ATTEND Hospitalist

== ENCOUNTER 2022-05-15 21:29 | Inpatient (IN) ==
[2022-05-15 22:02] LABS: ABS Eosinophils 0.1 10^3/ul (0-0.6); ABS Lymphocytes 1.9 10^3/ul (1.0-4.8); ABS Monocytes 0.7 10^3/ul (0-0.8); ABS Neutrophils 6.1 10^3/ul (1.5-7.7); Eosinophil % 1.4 %; Hematocrit 34 % (35-47); Hemoglobin 11.4 g/dL (12.0-16.0); Lymphocyte % 21.8 %; Mean Corpuscular HGB Conc 33 g/dL (31-36); Mean Corpuscular Hemoglobin 32 pg (27-31); Mean Corpuscular Volume 97 fL (80-97); Mean Platelet Volume 7.1 fL (7.4-10.4); Platelet Count 358 10^3/uL (150-450); Red Blood Count 3.53 10^6 /uL (3.70-4.87); Red Cell Distribution Width 16 % (10-15); White Blood Count 8.9 10^3/uL (3.5-10.8)
[2022-05-15 22:08] LABS: INR 1.02 (0.88-1.18)
[2022-05-15 22:57] LABS: Albumin 3.3 g/dL (3.2-5.2); Albumin/Globulin Ratio 1.4 (1-3); Calcium 8.8 mg/dL (8.6-10.3); Globulin 2.3 g/dL (2-4); Potassium 3.2 mmol/L (3.5-5.0); Total Bilirubin 0.2 mg/dL (0.2-1.0); Total Protein 5.6 g/dL (6.4-8.9); eGFR CKD-EPI 98.9 (>60)
[2022-05-15] MEDS ORDERED: Potassium Chlor 20 meq TAB.ER PO ONE (23:05)
[2022-05-15 23:22] LABS: High Sensitivity Troponin 1 Hr 8 pg/mL (<15)
[2022-05-15 23:34] LABS: Magnesium 1.9 mg/dL (1.9-2.7)
[2022-05-15] MEDS ORDERED: KCL 10 MEQ/50 ML IVPREMIX 10 MEQ/50 ML BAG IV ONE (23:34)
[2022-05-15] MEDS ORDERED: Magnesium Sulfate 2 gm BAG 2 GM/50 ML BAG IVPB ONE (23:44)
[2022-05-16 01:35] LABS: High Sensitivity Troponin 3 Hr 7 pg/mL (<15)
[2022-05-16] MEDS ORDERED: NS 0.9% 1000 ml BAG 1,000 ML IV ONE (02:00)
[2022-05-16] MEDS ORDERED: Iodixanol (CONTRAST) 320 MG/ML 100 ML SDV IV ONE (03:27)
[2022-05-16] MEDS ORDERED: Ondansetron 4 mg VIAL 2 MG/ML 2 ml VIAL IV PRN (05:57)
[2022-05-16] MEDS ORDERED: Albuterol HFA INHALER 8 gm MDI INH PRN (06:00)
[2022-05-16] MEDS ORDERED: NS 0.9% 1000 ml BAG 1,000 ML IV SCH (06:00)
[2022-05-16] MEDS ORDERED: Nicotine GUM 2MG FRUIT FLAVOR PO PRN (06:05)
[2022-05-16] MEDS: cefTRIAXone 1 gm/50 mL D5W 1 GM/50 ML BAG IV SCH (06:35)
[2022-05-16] MEDS: Heparin 5000 UNITS/ML 1 mL VIAL SUBCUT SCH ×3 (06:36→21:28)
[2022-05-16 07:00] LABS: Calcium 7.8 mg/dL (8.6-10.3); HDL Cholesterol 36.1 mg/dL; Potassium 3.2 mmol/L (3.5-5.0); eGFR CKD-EPI 99.3 (>60)
[2022-05-16] MEDS: Nicotine PATCH 14 MG/24 HR PATCH TRANSDERM SCH (09:18)
[2022-05-16] MEDS ORDERED: Potassium Chlor 20 meq TAB.ER PO ONE ×2 (10:39→15:25)
[2022-05-16] MEDS ORDERED: Remdesivir 100 mg Vial 200 MG in NS 0.9% 250 ml 210 ML IV ONE (13:00)
[2022-05-16] MEDS ORDERED: Sulfur Hexaflouride MICROSPHR 25 MG VIAL ONE (13:30)
[2022-05-16 14:57] LABS: INR 1.18 (0.88-1.18)
[2022-05-16 15:22] LABS: Albumin 2.8 g/dL (3.2-5.2); Albumin/Globulin Ratio 1.4 (1-3); Calcium 7.9 mg/dL (8.6-10.3); Potassium 3.1 mmol/L (3.5-5.0); Total Bilirubin 0.4 mg/dL (0.2-1.0); Total Protein 4.8 g/dL (6.4-8.9); eGFR CKD-EPI 99.3 (>60)
[2022-05-17 06:28] LABS: ABS Eosinophils 0.2 10^3/ul (0-0.6); ABS Lymphocytes 0.9 10^3/ul (1.0-4.8); ABS Monocytes 0.8 10^3/ul (0-0.8); ABS Neutrophils 6.9 10^3/ul (1.5-7.7); Eosinophil % 2.4 %; Hematocrit 28 % (35-47); Hemoglobin 9.1 g/dL (12.0-16.0); Lymphocyte % 10.4 %; Mean Corpuscular HGB Conc 33 g/dL (31-36); Mean Corpuscular Hemoglobin 32 pg (27-31); Mean Corpuscular Volume 99 fL (80-97); Mean Platelet Volume 7.4 fL (7.4-10.4); Platelet Count 241 10^3/uL (150-450); Red Blood Count 2.79 10^6 /uL (3.70-4.87); Red Cell Distribution Width 16 % (10-15); White Blood Count 8.8 10^3/uL (3.5-10.8)
[2022-05-17] MEDS: Heparin 5000 UNITS/ML 1 mL VIAL SUBCUT SCH ×3 (06:33→20:50)
[2022-05-17] MEDS: cefTRIAXone 1 gm/50 mL D5W 1 GM/50 ML BAG IV SCH (06:33)
[2022-05-17 06:48] LABS: INR 1.31 (0.88-1.18)
[2022-05-17 06:59] LABS: Albumin 2.7 g/dL (3.2-5.2); Albumin/Globulin Ratio 1.4 (1-3); Calcium 7.9 mg/dL (8.6-10.3); Globulin 1.9 g/dL (2-4); Potassium 3.4 mmol/L (3.5-5.0); Total Bilirubin 0.3 mg/dL (0.2-1.0); Total Protein 4.6 g/dL (6.4-8.9); eGFR CKD-EPI 97.3 (>60)
[2022-05-17] MEDS ORDERED: NS 0.9% 1000 ml BAG 1,000 ML IV SCH (07:15)
[2022-05-17] MEDS ORDERED: Potassium Chlor 20 meq TAB.ER PO ONE (09:09)
[2022-05-17] MEDS: Nicotine PATCH 14 MG/24 HR PATCH TRANSDERM SCH (10:04)
[2022-05-17] MEDS: Remdesivir 100 mg Vial 100 MG in NS 0.9% 250 ml 230 ML IV SCH (10:21)
[2022-05-18] MEDS: cefTRIAXone 1 gm/50 mL D5W 1 GM/50 ML BAG IV SCH (05:35)
[2022-05-18] MEDS: Heparin 5000 UNITS/ML 1 mL VIAL SUBCUT SCH (05:35)
[2022-05-18 06:52] LABS: ABS Eosinophils 0.3 10^3/ul (0-0.6); ABS Lymphocytes 1.1 10^3/ul (1.0-4.8); ABS Monocytes 0.5 10^3/ul (0-0.8); ABS Neutrophils 4.7 10^3/ul (1.5-7.7); Eosinophil % 4.1 %; Hematocrit 28 % (35-47); Hemoglobin 9.1 g/dL (12.0-16.0); Mean Corpuscular HGB Conc 32 g/dL (31-36); Mean Corpuscular Hemoglobin 32 pg (27-31); Mean Corpuscular Volume 100 fL (80-97); Mean Platelet Volume 7.4 fL (7.4-10.4); Platelet Count 228 10^3/uL (150-450); Red Blood Count 2.81 10^6 /uL (3.70-4.87); Red Cell Distribution Width 17 % (10-15); White Blood Count 6.6 10^3/uL (3.5-10.8)
[2022-05-18 06:53] LABS: INR 1.42 (0.88-1.18)
[2022-05-18 07:37] LABS: Albumin 2.5 g/dL (3.2-5.2); Albumin/Globulin Ratio 1.3 (1-3); Calcium 7.8 mg/dL (8.6-10.3); Globulin 1.9 g/dL (2-4); Potassium 3.2 mmol/L (3.5-5.0); Total Bilirubin 0.2 mg/dL (0.2-1.0); Total Protein 4.4 g/dL (6.4-8.9); eGFR CKD-EPI 91.1 (>60)
[2022-05-18] MEDS ORDERED: Potassium Chlor 20 meq TAB.ER PO ONE (09:38)
[2022-05-18] MEDS: Remdesivir 100 mg Vial 100 MG in NS 0.9% 250 ml 230 ML IV SCH (10:33)
[2022-05-18] MEDS: Nicotine PATCH 14 MG/24 HR PATCH TRANSDERM SCH (10:33)
[2022-05-18 17:05] VITALS: BP 111/51
== END 2022-05-18 16:15 | disposition home or self-care (01) | DRG 177 ==
LOC: ED 21:29 → EDHOLD 21:29 → SUATTDRO 05-16 05:15 → MEDTELE 05-16 15:42
PROVIDERS: ADMIT Internal Medicine; ATTEND Internal Medicine Hematology & Oncology

== ENCOUNTER 2022-10-24 09:50 | Inpatient (IN) ==
[2022-10-24 11:37] LABS: Urine Appearance Cloudy; Urine Bilirubin Negative (Negative); Urine Blood Negative (Negative); Urine Color Amber; Urine Glucose Negative (Negative); Urine Ketones 1+ (Negative); Urine Nitrite Positive (Negative); Urine Protein 1+(30 mg/dL) (Negative); Urine Specific Gravity 1.027 (1.002-1.030); Urine Urobilinogen Negative (Negative)
[2022-10-24 11:39] LABS: Venous Bicarbonate HCO3 22.3 mmol/L (24-28)
[2022-10-24 11:48] LABS: Hematocrit 38.5 % (35-45); Hemoglobin 12.9 g/dL (11.5-14.3); INR 1.08 (0.88-1.18); Mean Corpuscular Hemoglobin 33.1 pg (27-33); Mean Corpuscular Hgb Conc 33.5 g/dL (31-36); Mean Corpuscular Volume 98.6 fL (80-97); Red Cell Distribution Width 14.8 % (12-17); White Blood Count 5.2 10^3/uL (3.8-11.8)
[2022-10-24] MEDS ORDERED: Ondansetron 4 mg VIAL 2 MG/ML 2 ml VIAL IV ONE (12:01)
[2022-10-24 12:06] LABS: High Sens Troponin Baseline 750 pg/mL (<15)
[2022-10-24 12:17] LABS: Urine Benzodiazepine Screen None Detected (None Detect); Urine Buprenorphine Screen None Detected (None Detect); Urine Cannabinoids Screen None Detected (None Detect); Urine Fentanyl Screen None Detected (None Detect); Urine Hydrocodone Screen None Detected (None Detect); Urine Opiates Screen None Detected (None Detect)
[2022-10-24 12:19] LABS: Creatine Kinase 127 U/L (10-223)
[2022-10-24 12:20] LABS: ABS Eosinophils 0.2 10^3/uL (0.0-0.5); ABS Lymphocytes 1.5 10^3/uL (1.0-4.8); ABS Monocytes 0.8 10^3/uL (0.0-0.9); ABS Neutrophils 2.8 10^3/uL (1.5-7.6); Lymphocyte % 27.8 %; Mean Platelet Volume 7.7 fL (7.5-11.2); Platelet Count 98 10^3/uL (150-450)
[2022-10-24 12:24] LABS: ALT 28 U/L (7-52); AST 67 U/L (13-39); Albumin 3.3 g/dL (3.2-5.2); Albumin/Globulin Ratio 1.3 (1-3); Alkaline Phosphatase 81 U/L (35-149); Anion Gap 10 mmol/L (2-16); Blood Urea Nitrogen 11 mg/dL (6-24); CO2 Carbon Dioxide 20 mmol/L (22-32); Calcium 8.6 mg/dL (8.6-10.3); Chloride 112 mmol/L (101-111); Creatinine, Serum 0.71 mg/dL (0.51-0.95); Globulin 2.5 g/dL (2-4); Glucose 72 mg/dL (70-100); Lipase < 10 U/L (11.0-82.0); Magnesium 1.7 mg/dL (1.9-2.7); Potassium 3.5 mmol/L (3.5-5.0); Sodium 142 mmol/L (135-145); Total Protein 5.8 g/dL (6.4-8.9); eGFR CKD-EPI 97.3 (>60)
[2022-10-24 12:30] LABS: Alcohol, S < 13 mg/dL (<13)
[2022-10-24 12:31] LABS: Urine Bacteria 1+ (Absent); Urine Red Blood Cell Trace(0-2/hpf) (Absent); Urine Squamous Epithelial Cell Present (Absent); Urine White Blood Cell 2+(11-20/hpf) (Absent)
[2022-10-24] MEDS ORDERED: Iodixanol (CONTRAST) 320 MG/ML 100 ML SDV IV ONE ×2 (12:38→15:34)
[2022-10-24] MEDS ORDERED: NS 0.9% 1000 ml BAG 1,000 ML IV ONE ×2 (12:43→14:10)
[2022-10-24 13:03] LABS: High Sensitivity Troponin 1 Hr 1093 pg/mL (<15)
[2022-10-24] MEDS ORDERED: cefTRIAXone 1 gm/50 mL D5W 1 GM/50 ML BAG IV ONE (13:28)
[2022-10-24] MEDS ORDERED: Magnesium Sulfate 2 gm BAG 2 GM/50 ML BAG IVPB ONE (13:37)
[2022-10-24] MEDS: Heparin DRIP 25,000 UNITS BAG 25,000 UNITS/500 ML BAG IV SCH (17:11)
[2022-10-24] MEDS: Heparin 5000 UNITS/ML 1 mL VIAL IV SCH (17:11)
[2022-10-24] MEDS ORDERED: Ondansetron 4 mg VIAL 2 MG/ML 2 ml VIAL IV PRN (17:48)
[2022-10-24] MEDS: Lactated Ringers 1000 ml BAG 1,000 ML IV SCH (20:19)
[2022-10-24 21:16] LABS: C Reactive Protein 21.45 mg/L (<8.01)
[2022-10-25] MEDS: Lactated Ringers 1000 ml BAG 1,000 ML IV SCH ×4 (02:11→16:38)
[2022-10-25] MEDS ORDERED: Sulfur Hexaflouride MICROSPHR 25 MG VIAL ONE (08:10)
[2022-10-25] MEDS: CMCS: Venlafaxine 25 mg TAB (NF) PO SCH (09:00)
[2022-10-25 10:02] LABS: ABS Eosinophils 0.2 10^3/uL (0.0-0.5); ABS Lymphocytes 0.7 10^3/uL (1.0-4.8); ABS Monocytes 0.4 10^3/uL (0.0-0.9); ABS Neutrophils 2.6 10^3/uL (1.5-7.6); Eosinophil % 4.8 %; Hemoglobin 11.9 g/dL (11.5-14.3); Lymphocyte % 17.2 %; Mean Corpuscular Hemoglobin 32.9 pg (27-33); Mean Corpuscular Volume 99.7 fL (80-97); Mean Platelet Volume 7.5 fL (7.5-11.2); Nucleated Red Blood Cells % 0.1 /100 WBC (0.0-0.4); Platelet Count 88 10^3/uL (150-450); Red Blood Count 3.61 10^6/uL (3.63-4.92); Red Cell Distribution Width 15.3 % (12-17)
[2022-10-25 11:04] LABS: Albumin 2.9 g/dL (3.2-5.2); CO2 Carbon Dioxide 19 mmol/L (22-32); Calcium 7.9 mg/dL (8.6-10.3); Chloride 110 mmol/L (101-111); Sodium 141 mmol/L (135-145)
[2022-10-25 11:08] LABS: Anion Gap 12 mmol/L (2-16)
[2022-10-25 11:10] LABS: ALT 22 U/L (7-52); Albumin/Globulin Ratio 1.3 (1-3); Alkaline Phosphatase 72 U/L (35-149); Blood Urea Nitrogen 5 mg/dL (6-24); Cholesterol 110 mg/dL; Creatinine, Serum 0.71 mg/dL (0.51-0.95); Globulin 2.2 g/dL (2-4); Glucose 53 mg/dL (70-100); HDL Cholesterol 36.6 mg/dL; LDL Cholesterol 52 mg/dL; Total Protein 5.1 g/dL (6.4-8.9); Triglycerides 108 mg/dL; eGFR CKD-EPI 97.3 (>60)
[2022-10-25 11:15] LABS: Potassium, Whole Blood 3.3 mmol/L (3.4-4.5)
[2022-10-25 11:22] LABS: TSH Ultra Thyroid Stim Horm 11.37 mcIU/mL (0.34-5.60)
[2022-10-25] MEDS: levETIRAcetam 1000MG IVPREMIX 1,000 MG/100 ML BAG IVPB SCH ×2 (12:44→23:01)
[2022-10-25] MEDS ORDERED: cefTRIAXone 1 gm/50 mL D5W 1 GM/50 ML BAG IV SCH (13:00)
[2022-10-25] MEDS: Valproic Acid IV 125 MG in NS 0.9% 100 ml BAG 100 ML IVPB SCH ×2 (13:06→22:11)
[2022-10-25] MEDS: cefTRIAXone 1 gm/50 mL D5W 1 GM/50 ML BAG IV SCH (13:43)
[2022-10-25] MEDS: Heparin 5000 UNITS/ML 1 mL VIAL IV SCH (16:38)
[2022-10-25] MEDS: KCL 20 MEQ/100 ML IVPREMIX 20 MEQ/100 ML BAG IV SCH ×2 (17:30→18:28)
[2022-10-25] MEDS ORDERED: Potassium Chloride LIQUID 20 MEQ/15 ML LIQUID PO ONE (17:43)
[2022-10-25 18:32] LABS: T4, Total 7.01 mcg/dL (6.09-12.23)
[2022-10-26] MEDS: Valproic Acid IV 125 MG in NS 0.9% 100 ml BAG 100 ML IVPB SCH ×4 (04:24→23:51)
[2022-10-26] MEDS: Lactated Ringers 1000 ml BAG 1,000 ML IV SCH (04:24)
[2022-10-26 05:43] LABS: Calcium 8.1 mg/dL (8.6-10.3); Creatinine, Serum 0.77 mg/dL (0.51-0.95); Magnesium 1.6 mg/dL (1.9-2.7); Potassium 3.8 mmol/L (3.5-5.0); eGFR CKD-EPI 88.3 (>60)
[2022-10-26 05:51] LABS: ABS Eosinophils 0.2 10^3/uL (0.0-0.5); ABS Monocytes 0.5 10^3/uL (0.0-0.9); ABS Neutrophils 2.1 10^3/uL (1.5-7.6); ABS Nucleated RBC 0.01 10^3/ul; Eosinophil % 6.3 %; Hemoglobin 12.4 g/dL (11.5-14.3); Lymphocyte % 25.8 %; Mean Corpuscular Hemoglobin 33.3 pg (27-33); Mean Corpuscular Hgb Conc 33.6 g/dL (31-36); Mean Corpuscular Volume 99.3 fL (80-97); Mean Platelet Volume 7.5 fL (7.5-11.2); Nucleated Red Blood Cells % 0.2 /100 WBC (0.0-0.4); Platelet Count 86 10^3/uL (150-450); Red Blood Count 3.73 10^6/uL (3.63-4.92); Red Cell Distribution Width 15.1 % (12-17); White Blood Count 3.8 10^3/uL (3.8-11.8)
[2022-10-26 05:56] LABS: Activated Partial Thrombo Time 69.6 seconds (26.0-38.0); INR 1.1 (0.88-1.18)
[2022-10-26] MEDS ORDERED: Magnesium Sulfate 2 gm BAG 2 GM/50 ML BAG IVPB ONE (07:45)
[2022-10-26] MEDS ORDERED: KCL 20 MEQ/100 ML IVPREMIX 20 MEQ/100 ML BAG IV ONE (10:56)
[2022-10-26] MEDS: levETIRAcetam 1000MG IVPREMIX 1,000 MG/100 ML BAG IVPB SCH ×2 (11:27→21:32)
[2022-10-26] MEDS ORDERED: Magnesium Sulfate IV 3 GM in NS 0.9% 100 ml BAG 100 ML IVPB ONE (11:30)
[2022-10-26] MEDS ORDERED: Regadenoson 0.4 MG/5 ML SYRINGE ONE (11:59)
[2022-10-26] MEDS: cefTRIAXone 1 gm/50 mL D5W 1 GM/50 ML BAG IV SCH (13:32)
[2022-10-26] MEDS: CMCS: Venlafaxine 25 mg TAB (NF) PO SCH ×2 (15:51→20:14)
[2022-10-26] MEDS ORDERED: Lactated Ringers 1000 ml BAG 500 ML IV ONE (18:32)
[2022-10-26] MEDS ORDERED: Dextrose 50% Syringe 50 ml 25 GM/50 ML SYRINGE IV PUSH PRN (19:59)
[2022-10-26] MEDS ORDERED: D5LR 1000 ml BAG 1,000 ML IV SCH (20:00)
[2022-10-26] MEDS ORDERED: Norepinephrine 16MCG/ML BAGD5W 4,000 MCG/250 ML BAG IV SCH (21:00)
[2022-10-26] MEDS ORDERED: D5LR 1000 ml BAG 500 ML IV ONE (21:00)
[2022-10-26 21:01] LABS: Albumin 2.5 g/dL (3.2-5.2); Albumin/Globulin Ratio 1.3 (1-3); Calcium 7.6 mg/dL (8.6-10.3); Creatinine, Serum 0.78 mg/dL (0.51-0.95); Globulin 1.9 g/dL (2-4); Magnesium 2.3 mg/dL (1.9-2.7); Phosphorus 2.7 mg/dL (2.5-5.0); Potassium 3.7 mmol/L (3.5-5.0); Total Bilirubin 0.2 mg/dL (0.2-1.0); Total Protein 4.4 g/dL (6.4-8.9); eGFR CKD-EPI 86.9 (>60)
[2022-10-26 21:02] LABS: Hematocrit 29.7 % (35-45); Mean Corpuscular Hemoglobin 33.1 pg (27-33); Mean Corpuscular Hgb Conc 33.6 g/dL (31-36); Mean Corpuscular Volume 98.5 fL (80-97); Mean Platelet Volume 7.7 fL (7.5-11.2); Platelet Count 84 10^3/uL (150-450); Red Blood Count 3.01 10^6/uL (3.63-4.92); Red Cell Distribution Width 15.2 % (12-17)
[2022-10-26 21:40] LABS: Venous Bicarbonate HCO3 22.5 mmol/L (24-28)
[2022-10-26] MEDS ORDERED: KCL 10 MEQ/50 ML IVPREMIX 10 MEQ/50 ML BAG IV ONE (21:57)
[2022-10-26 22:03] LABS: High Sensitivity Troponin 1 Hr 54 pg/mL (<15)
[2022-10-26] MEDS: Heparin DRIP 25,000 UNITS BAG 25,000 UNITS/500 ML BAG IV SCH (22:09)
[2022-10-26 22:17] LABS: ABS Eosinophils 0.2 10^3/uL (0.0-0.5); ABS Lymphocytes 1.3 10^3/uL (1.0-4.8); ABS Monocytes 0.9 10^3/uL (0.0-0.9); ABS Neutrophils 1.6 10^3/uL (1.5-7.6); Acanthocytes 2+; Eosinophil % 5.8 %; Lymphocyte % 32.7 %; Nucleated Red Blood Cells % 0.1 /100 WBC (0.0-0.4)
[2022-10-27 04:18] LABS: ABS Eosinophils 0.3 10^3/uL (0.0-0.5); ABS Lymphocytes 1.1 10^3/uL (1.0-4.8); ABS Monocytes 0.6 10^3/uL (0.0-0.9); ABS Neutrophils 1.8 10^3/uL (1.5-7.6); ABS Nucleated RBC 0.01 10^3/ul; Eosinophil % 7.1 %; Hematocrit 29.2 % (35-45); Hemoglobin 9.9 g/dL (11.5-14.3); Lymphocyte % 29.8 %; Mean Corpuscular Hemoglobin 33.1 pg (27-33); Mean Corpuscular Hgb Conc 33.9 g/dL (31-36); Mean Corpuscular Volume 97.8 fL (80-97); Mean Platelet Volume 7.5 fL (7.5-11.2); Nucleated Red Blood Cells % 0.2 /100 WBC (0.0-0.4); Platelet Count 83 10^3/uL (150-450); Red Blood Count 2.99 10^6/uL (3.63-4.92); White Blood Count 3.9 10^3/uL (3.8-11.8)
[2022-10-27 04:33] LABS: Calcium 7.7 mg/dL (8.6-10.3); Creatinine, Serum 0.67 mg/dL (0.51-0.95); Magnesium 2.1 mg/dL (1.9-2.7); Potassium 4.1 mmol/L (3.5-5.0)
[2022-10-27] MEDS: Valproic Acid IV 125 MG in NS 0.9% 100 ml BAG 100 ML IVPB SCH ×3 (05:40→17:36)
[2022-10-27 08:39] LABS: TSH Ultra Thyroid Stim Horm 9.88 mcIU/mL (0.34-5.60)
[2022-10-27 08:42] LABS: Free T4 0.81 ng/dL (0.61-1.12)
[2022-10-27] MEDS: CMCS: Venlafaxine 25 mg TAB (NF) PO SCH (08:52)
[2022-10-27] MEDS: levETIRAcetam 1000MG IVPREMIX 1,000 MG/100 ML BAG IVPB SCH (08:53)
[2022-10-27] MEDS: Enoxaparin 40 MG/0.4 ML SYR SUBCUT SCH (09:52)
[2022-10-27 11:56] LABS: Hepatitis B Surface Antigen Nonreactive (Nonreactive)
[2022-10-27 12:01] LABS: Hepatitis A Ab IgM Negative (Negative)
[2022-10-27 12:02] LABS: Hepatitis B Core IgM Nonreactive (Nonreactive)
[2022-10-27 12:14] LABS: Hepatitis C Antibody Negative (Negative)
[2022-10-27] MEDS: cefTRIAXone 1 gm/50 mL D5W 1 GM/50 ML BAG IV SCH (12:49)
[2022-10-28 05:30] LABS: Blood Urea Nitrogen 7 mg/dL (6-24); CO2 Carbon Dioxide 25 mmol/L (22-32); Calcium 7.6 mg/dL (8.6-10.3); Chloride 109 mmol/L (101-111); Creatinine, Serum 0.72 mg/dL (0.51-0.95); Glucose 78 mg/dL (70-100); Magnesium 1.7 mg/dL (1.9-2.7); Sodium 139 mmol/L (135-145); eGFR CKD-EPI 95.7 (>60)
[2022-10-28 05:35] LABS: ABS Eosinophils 0.3 10^3/uL (0.0-0.5); ABS Lymphocytes 1.3 10^3/uL (1.0-4.8); ABS Monocytes 0.9 10^3/uL (0.0-0.9); ABS Neutrophils 1.6 10^3/uL (1.5-7.6); ABS Nucleated RBC 0.01 10^3/ul; Eosinophil % 6.9 %; Hemoglobin 9.5 g/dL (11.5-14.3); Lymphocyte % 32.2 %; Mean Corpuscular Hemoglobin 33.1 pg (27-33); Mean Corpuscular Volume 97.3 fL (80-97); Mean Platelet Volume 7.3 fL (7.5-11.2); Nucleated Red Blood Cells % 0.2 /100 WBC (0.0-0.4); Platelet Count 89 10^3/uL (150-450); Red Blood Count 2.87 10^6/uL (3.63-4.92); Red Cell Distribution Width 15.1 % (12-17); White Blood Count 4.1 10^3/uL (3.8-11.8)
[2022-10-28 05:38] LABS: Anion Gap 5 mmol/L (2-16)
[2022-10-28] MEDS: CMCS: Venlafaxine 25 mg TAB (NF) PO SCH (09:28)
[2022-10-28] MEDS: Enoxaparin 40 MG/0.4 ML SYR SUBCUT SCH (09:29)
[2022-10-28] MEDS: cefTRIAXone 1 gm/50 mL D5W 1 GM/50 ML BAG IV SCH (13:33)
[2022-10-28] MEDS: Cefepime 1 GM in Dextrose 1 GM/50 ML BAG IV SCH (15:06)
[2022-10-28] MEDS ORDERED: NS 0.9% 250 ml 250 ML IV ONE (18:45)
[2022-10-29] MEDS: Cefepime 1 GM in Dextrose 1 GM/50 ML BAG IV SCH (03:24)
[2022-10-29 07:03] LABS: Hematocrit 34.7 % (35-45); Hemoglobin 11.7 g/dL (11.5-14.3); Mean Corpuscular Hemoglobin 33.3 pg (27-33); Mean Corpuscular Hgb Conc 33.7 g/dL (31-36); Mean Corpuscular Volume 98.8 fL (80-97); Mean Platelet Volume 7.5 fL (7.5-11.2); Platelet Count 102 10^3/uL (150-450); Red Blood Count 3.51 10^6/uL (3.63-4.92); Red Cell Distribution Width 15.1 % (12-17); White Blood Count 4.5 10^3/uL (3.8-11.8)
[2022-10-29 07:21] LABS: Calcium 8.8 mg/dL (8.6-10.3); Creatinine, Serum 0.88 mg/dL (0.51-0.95); Magnesium 1.8 mg/dL (1.9-2.7); Potassium 4.4 mmol/L (3.5-5.0); eGFR CKD-EPI 75.2 (>60)
[2022-10-29 07:22] LABS: ABS Eosinophils 0.3 10^3/uL (0.0-0.5); ABS Lymphocytes 1.7 10^3/uL (1.0-4.8); ABS Monocytes 0.6 10^3/uL (0.0-0.9); ABS Neutrophils 1.9 10^3/uL (1.5-7.6); Eosinophil % 6.4 %; Lymphocyte % 37.7 %; Nucleated Red Blood Cells % 0.1 /100 WBC (0.0-0.4)
[2022-10-29] MEDS ORDERED: Magnesium Sulfate 2 gm BAG 2 GM/50 ML BAG IVPB ONE (08:05)
[2022-10-29] MEDS: CMCS: Venlafaxine 25 mg TAB (NF) PO SCH (08:48)
[2022-10-29] MEDS: Enoxaparin 40 MG/0.4 ML SYR SUBCUT SCH (08:49)
[2022-10-30 07:16] LABS: Hematocrit 30.8 % (35-45); Hemoglobin 10.4 g/dL (11.5-14.3); Mean Corpuscular Hemoglobin 33.3 pg (27-33); Mean Corpuscular Hgb Conc 33.9 g/dL (31-36); Mean Corpuscular Volume 98.3 fL (80-97); Mean Platelet Volume 7.3 fL (7.5-11.2); Platelet Count 109 10^3/uL (150-450); Red Blood Count 3.13 10^6/uL (3.63-4.92); Red Cell Distribution Width 15.2 % (12-17); White Blood Count 4.6 10^3/uL (3.8-11.8)
[2022-10-30 07:25] LABS: Calcium 8.1 mg/dL (8.6-10.3); Creatinine, Serum 0.81 mg/dL (0.51-0.95); eGFR CKD-EPI 83.1 (>60)
[2022-10-30] MEDS: Enoxaparin 40 MG/0.4 ML SYR SUBCUT SCH (09:18)
[2022-10-30] MEDS: CMCS: Venlafaxine 25 mg TAB (NF) PO SCH (09:18)
[2022-10-30 09:30] LABS: ABS Eosinophils 0.2 10^3/uL (0.0-0.5); ABS Lymphocytes 1.6 10^3/uL (1.0-4.8); ABS Monocytes 0.8 10^3/uL (0.0-0.9); Eosinophil % 5.3 %; Lymphocyte % 35.1 %; Nucleated Red Blood Cells % 0.1 /100 WBC (0.0-0.4)
[2022-10-30 15:01] LABS: Rapid COVID-19 Molecular Undetected (Undetected)
[2022-10-31 10:01] VITALS: BP 100/63
[2022-10-31] MEDS: CMCS: Venlafaxine 25 mg TAB (NF) PO SCH (10:30)
[2022-10-31] MEDS: Enoxaparin 40 MG/0.4 ML SYR SUBCUT SCH (10:32)
== END 2022-10-31 14:05 | DRG 71 ==
LOC: ED 09:50 → SUATTDRO 16:06 → EDHOLD 16:06 → MEDTELE 20:46 → ICU 10-26 20:55 → MEDTELE 10-28 11:59
PROVIDERS: ADMIT Internal Medicine; ATTEND Internal Medicine

== ENCOUNTER 2023-01-01 15:44 | Inpatient (IN) ==
[2023-01-01 16:39] LABS: Hematocrit 39.7 % (35-45); Hemoglobin 13.3 g/dL (11.5-14.3); Mean Corpuscular Hemoglobin 32.4 pg (27-33); Mean Corpuscular Hgb Conc 33.5 g/dL (31-36); Mean Corpuscular Volume 96.9 fL (80-97); Mean Platelet Volume 7.6 fL (7.5-11.2); Platelet Count 144 10^3/uL (150-450); Red Blood Count 4.09 10^6/uL (3.63-4.92); Red Cell Distribution Width 15.1 % (12-17); White Blood Count 27.4 10^3/uL (3.8-11.8)
[2023-01-01 16:50] LABS: Activated Partial Thrombo Time 29.3 seconds (26.0-38.0); INR 1.02 (0.83-1.13)
[2023-01-01] MEDS ORDERED: NS 0.9% 1000 ml BAG 1,000 ML IV ONE (16:55)
[2023-01-01] MEDS ORDERED: cefTRIAXone 1 gm/50 mL D5W 1 GM/50 ML BAG IV ONE (16:56)
[2023-01-01] MEDS: NS 0.9% 1000 ml BAG 1,000 ML IV ONE ×2 (17:02→18:44)
[2023-01-01 17:14] LABS: ABS Monocytes 2.3 10^3/uL (0.0-0.9); ABS Nucleated RBC 0.02 10^3/ul; Lymphocyte % 3.7 %; Nucleated Red Blood Cells % 0.1 /100 WBC (0.0-0.4); RBC Morphology Normal (Normal)
[2023-01-01 17:19] LABS: Albumin 3.4 g/dL (3.2-5.2); C Reactive Protein 467.15 mg/L (<8.01); Calcium 9.4 mg/dL (8.6-10.3); Creatinine, Serum 1.08 mg/dL (0.51-0.95); Globulin 3.4 g/dL (2-4); Total Bilirubin 0.3 mg/dL (0.2-1.0); Total Protein 6.8 g/dL (6.4-8.9); eGFR CKD-EPI 58.8 (>60)
[2023-01-01 17:22] LABS: Potassium 2.6 mmol/L (3.5-5.0)
[2023-01-01 18:28] LABS: High Sensitivity Troponin 1 Hr 11 pg/mL (<15)
[2023-01-01 18:35] LABS: Urine Appearance Cloudy; Urine Bilirubin Negative (Negative); Urine Blood 1+ (Negative); Urine Color Yellow; Urine Glucose Negative (Negative); Urine Ketones Negative (Negative); Urine Nitrite Positive (Negative); Urine Protein 2+(100 mg/dL) (Negative); Urine Specific Gravity 1.016 (1.002-1.030); Urine Urobilinogen Negative (Negative)
[2023-01-01] MEDS: KCL 20 MEQ/100 ML IVPREMIX 20 MEQ/100 ML BAG IV SCH ×3 (18:44→23:38)
[2023-01-01] MEDS ORDERED: Azithromycin 500 mg/250 ml NS 500 MG/250 ML BAG IVPB ONE (18:52)
[2023-01-01 18:54] LABS: Urine Bacteria 1+ (Absent); Urine Red Blood Cell 2+(6-10/hpf) (Absent); Urine Squamous Epithelial Cell Present (Absent); Urine White Blood Cell 3+(>20/hpf) (Absent)
[2023-01-01 19:57] LABS: Magnesium 2.1 mg/dL (1.9-2.7)
[2023-01-01] MEDS ORDERED: Ondansetron 4 mg VIAL 2 MG/ML 2 ml VIAL IV PRN (21:49)
[2023-01-01] MEDS ORDERED: Zosyn per Pharmacy NOTE FOLLOW UP SCH (22:00)
[2023-01-01] MEDS ORDERED: Lactated Ringers 1000 ml BAG 1,000 ML IV SCH (22:00)
[2023-01-01] MEDS: Enoxaparin 40 MG/0.4 ML SYR SUBCUT SCH (23:39)
[2023-01-02 00:33] LABS: Calcium 7.6 mg/dL (8.6-10.3); Creatinine, Serum 0.97 mg/dL (0.51-0.95); Magnesium 1.8 mg/dL (1.9-2.7); eGFR CKD-EPI 66.9 (>60)
[2023-01-02 00:51] LABS: Potassium 2.7 mmol/L (3.5-5.0)
[2023-01-02] MEDS ORDERED: Magnesium Sulfate 2 gm BAG 2 GM/50 ML BAG IVPB ONE (00:58)
[2023-01-02] MEDS ORDERED: Potassium Chlor 20 meq TAB.ER PO ONE ×2 (00:59→05:00)
[2023-01-02] MEDS ORDERED: Levalbuterol 1.25MG/0.5ML NEB.SOL INH PRN (01:17)
[2023-01-02 06:39] LABS: Hematocrit 32.2 % (35-45); Hemoglobin 10.8 g/dL (11.5-14.3); Mean Corpuscular Hemoglobin 32.4 pg (27-33); Mean Corpuscular Hgb Conc 33.5 g/dL (31-36); Mean Corpuscular Volume 96.8 fL (80-97); Mean Platelet Volume 7.5 fL (7.5-11.2); Platelet Count 111 10^3/uL (150-450); Red Blood Count 3.32 10^6/uL (3.63-4.92); Red Cell Distribution Width 15.2 % (12-17); White Blood Count 27.3 10^3/uL (3.8-11.8)
[2023-01-02 06:52] LABS: Calcium 8.3 mg/dL (8.6-10.3); Creatinine, Serum 0.92 mg/dL (0.51-0.95); Magnesium 2.5 mg/dL (1.9-2.7); Potassium 2.8 mmol/L (3.5-5.0); eGFR CKD-EPI 71.3 (>60)
[2023-01-02 07:03] LABS: ABS Lymphocytes 0.9 10^3/uL (1.0-4.8); ABS Monocytes 2.3 10^3/uL (0.0-0.9); ABS Neutrophils 24.1 10^3/uL (1.5-7.6); ABS Nucleated RBC 0.01 10^3/ul; Eosinophil % 0.1 %; Lymphocyte % 3.2 %
[2023-01-02 07:47] LABS: TSH Ultra Thyroid Stim Horm 0.24 mcIU/mL (0.34-5.60)
[2023-01-02] MEDS ORDERED: Venlafaxine 25 mg TAB (NF) PO SCH (09:00)
[2023-01-02] MEDS: Potassium Chlor 20 meq TAB.ER PO ONE ×2 (09:32→09:48)
[2023-01-02] MEDS: KCL 20 MEQ/100 ML IVPREMIX 20 MEQ/100 ML BAG IV SCH ×2 (09:32→13:18)
[2023-01-02 15:29] LABS: Calcium 8.1 mg/dL (8.6-10.3); Potassium 3.6 mmol/L (3.5-5.0)
[2023-01-02 15:35] LABS: Creatinine, Serum 0.9 mg/dL (0.51-0.95); eGFR CKD-EPI 73.2 (>60)
[2023-01-02 15:54] LABS: Hematocrit 33.5 % (35-45); Hemoglobin 10.8 g/dL (11.5-14.3); Mean Corpuscular Hemoglobin 32.1 pg (27-33); Mean Corpuscular Hgb Conc 32.3 g/dL (31-36); Mean Corpuscular Volume 99.3 fL (80-97); Red Blood Count 3.37 10^6/uL (3.63-4.92); Red Cell Distribution Width 15.2 % (12-17); White Blood Count 25.5 10^3/uL (3.8-11.8)
[2023-01-02 15:55] LABS: Mean Platelet Volume 7.6 fL (7.5-11.2); Platelet Count 97 10^3/uL (150-450)
[2023-01-02 16:33] LABS: ABS Basophils 0.1 10^3/uL (0.0-0.1); ABS Eosinophils 0.1 10^3/uL (0.0-0.5); ABS Lymphocytes 1.5 10^3/uL (1.0-4.8); ABS Monocytes 2.4 10^3/uL (0.0-0.9); ABS Neutrophils 21.5 10^3/uL (1.5-7.6); Eosinophil % 0.2 %; Lymphocyte % 5.9 %
[2023-01-02 16:36] LABS: Burr Cells 2+
[2023-01-02] MEDS ORDERED: cefTRIAXone 1 gm/50 mL D5W 1 GM/50 ML BAG IV ONE (17:34)
[2023-01-02] MEDS ORDERED: cefTRIAXone 1 gm/50 mL D5W 1 GM/50 ML BAG IV SCH (18:00)
[2023-01-02] MEDS: Enoxaparin 40 MG/0.4 ML SYR SUBCUT SCH (18:44)
[2023-01-02] MEDS: cefTRIAXone 2 gm/50 mL D5W 2 GM/50 ML BAG IV SCH (18:44)
[2023-01-02] MEDS ORDERED: NS 0.9% 1000 ml BAG 1,000 ML IV ONE ×2 (18:45→23:48)
[2023-01-02 19:14] LABS: PCO2 Arterial 23 mmHg (35-45); PO2 Arterial 86 mmHg (80-100)
[2023-01-02] MEDS ORDERED: NS 0.9% 1000 ml BAG 1,000 ML IV SCH (19:45)
[2023-01-02] MEDS ORDERED: Azithromycin 500 mg/250 ml NS 500 MG/250 ML BAG IVPB SCH (22:00)
[2023-01-03 06:52] LABS: ABS Eosinophils 0.1 10^3/uL (0.0-0.5); ABS Lymphocytes 0.8 10^3/uL (1.0-4.8); ABS Monocytes 1.2 10^3/uL (0.0-0.9); ABS Neutrophils 13.5 10^3/uL (1.5-7.6); Eosinophil % 0.4 %; Hematocrit 28.6 % (35-45); Hemoglobin 9.6 g/dL (11.5-14.3); Lymphocyte % 5.3 %; Mean Corpuscular Hgb Conc 33.4 g/dL (31-36); Mean Corpuscular Volume 98.7 fL (80-97); Mean Platelet Volume 7.3 fL (7.5-11.2); Platelet Count 89 10^3/uL (150-450); Red Cell Distribution Width 15.2 % (12-17); White Blood Count 15.6 10^3/uL (3.8-11.8)
[2023-01-03 07:04] LABS: Calcium 7.5 mg/dL (8.6-10.3); Creatinine, Serum 0.94 mg/dL (0.51-0.95); Magnesium 1.9 mg/dL (1.9-2.7); Potassium 2.9 mmol/L (3.5-5.0); eGFR CKD-EPI 69.5 (>60)
[2023-01-03] MEDS ORDERED: Potassium Chlor 20 meq TAB.ER PO ONE ×2 (07:54→15:58)
[2023-01-03] MEDS ORDERED: Magnesium Sulfate 2 gm BAG 2 GM/50 ML BAG IVPB ONE (08:14)
[2023-01-03] MEDS: Venlafaxine 25 mg TAB (NF) PO SCH (09:20)
[2023-01-03] MEDS: KCL 20 MEQ/100 ML IVPREMIX 20 MEQ/100 ML BAG IV SCH ×4 (10:31→19:59)
[2023-01-03 14:10] LABS: Calcium 7.7 mg/dL (8.6-10.3); Creatinine, Serum 0.86 mg/dL (0.51-0.95); Potassium 3.2 mmol/L (3.5-5.0); eGFR CKD-EPI 77.3 (>60)
[2023-01-03] MEDS ORDERED: NS 0.9% 1000 ml BAG 1,000 ML IV ONE (17:10)
[2023-01-03] MEDS: cefTRIAXone 2 gm/50 mL D5W 2 GM/50 ML BAG IV SCH (18:23)
[2023-01-03] MEDS ORDERED: Lactated Ringers 1000 ml BAG 500 ML IV ONE (21:41)
[2023-01-03] MEDS: Enoxaparin 40 MG/0.4 ML SYR SUBCUT SCH (22:31)
[2023-01-03] MEDS ORDERED: Iodixanol (CONTRAST) 320 MG/ML 100 ML SDV IV ONE (23:15)
[2023-01-04] MEDS ORDERED: Lactated Ringers 1000 ml BAG 1,000 ML IV ONE (02:03)
[2023-01-04 06:32] LABS: Urine Appearance Clear; Urine Bilirubin Negative (Negative); Urine Blood 1+ (Negative); Urine Color Colorless; Urine Glucose Negative (Negative); Urine Ketones Negative (Negative); Urine Nitrite Negative (Negative); Urine Protein Negative (Negative); Urine Specific Gravity 1.015 (1.002-1.030); Urine Urobilinogen Negative (Negative)
[2023-01-04 06:35] LABS: Urine Bacteria Absent (Absent); Urine Red Blood Cell Trace(0-2/hpf) (Absent); Urine Squamous Epithelial Cell Present (Absent); Urine White Blood Cell Trace(0-5/hpf) (Absent)
[2023-01-04 06:36] LABS: Urine Potassium Concentration 13.1 mmol/L
[2023-01-04 07:28] LABS: Hematocrit 29.1 % (35-45); Hemoglobin 9.7 g/dL (11.5-14.3); Mean Corpuscular Hemoglobin 33.2 pg (27-33); Mean Corpuscular Hgb Conc 33.5 g/dL (31-36); Mean Corpuscular Volume 99.3 fL (80-97); Mean Platelet Volume 7.5 fL (7.5-11.2); Platelet Count 81 10^3/uL (150-450); Red Blood Count 2.93 10^6/uL (3.63-4.92); Red Cell Distribution Width 15.4 % (12-17); White Blood Count 10.7 10^3/uL (3.8-11.8)
[2023-01-04 07:52] LABS: Calcium 7.7 mg/dL (8.6-10.3); Creatinine, Serum 0.87 mg/dL (0.51-0.95); Potassium 3.6 mmol/L (3.5-5.0); eGFR CKD-EPI 76.2 (>60)
[2023-01-04 08:37] LABS: ABS Eosinophils 0.1 10^3/uL (0.0-0.5); ABS Lymphocytes 0.9 10^3/uL (1.0-4.8); ABS Monocytes 0.8 10^3/uL (0.0-0.9); ABS Neutrophils 8.8 10^3/uL (1.5-7.6); Eosinophil % 0.7 %; Lymphocyte % 8.7 %
[2023-01-04 08:39] LABS: RBC Morphology Normal (Normal)
[2023-01-04] MEDS ORDERED: Potassium Chlor 20 meq TAB.ER PO ONE (09:08)
[2023-01-04] MEDS: Venlafaxine 25 mg TAB (NF) PO SCH (10:20)
[2023-01-04] MEDS: SODIUM BICARB IV SCH (11:46)
[2023-01-04] MEDS: NS 0.9% IV SCH (11:46)
[2023-01-04 16:29] LABS: Ferritin 457.3 ng/mL (11-307)
[2023-01-04 16:49] LABS: Calcium 8.3 mg/dL (8.6-10.3); Creatinine, Serum 0.82 mg/dL (0.51-0.95); Potassium 3.6 mmol/L (3.5-5.0); eGFR CKD-EPI 81.8 (>60)
[2023-01-04] MEDS: cefTRIAXone 2 gm/50 mL D5W 2 GM/50 ML BAG IV SCH (18:46)
[2023-01-04] MEDS: Enoxaparin 40 MG/0.4 ML SYR SUBCUT SCH (20:31)
[2023-01-05] MEDS: SODIUM BICARB IV SCH (03:08)
[2023-01-05] MEDS: NS 0.9% IV SCH (03:08)
[2023-01-05 06:22] LABS: Calcium 7.5 mg/dL (8.6-10.3); Creatinine, Serum 0.79 mg/dL (0.51-0.95); Magnesium 1.8 mg/dL (1.9-2.7); Potassium 2.9 mmol/L (3.5-5.0); eGFR CKD-EPI 85.6 (>60)
[2023-01-05 06:33] LABS: Hematocrit 30.1 % (35-45); Hemoglobin 10.2 g/dL (11.5-14.3); Mean Corpuscular Hemoglobin 33.3 pg (27-33); Mean Corpuscular Hgb Conc 33.8 g/dL (31-36); Mean Corpuscular Volume 98.5 fL (80-97); Mean Platelet Volume 7.6 fL (7.5-11.2); Platelet Count 71 10^3/uL (150-450); Red Blood Count 3.06 10^6/uL (3.63-4.92); White Blood Count 8.7 10^3/uL (3.8-11.8)
[2023-01-05] MEDS ORDERED: Magnesium Sulfate IV 3 GM in NS 0.9% 100 ml BAG 100 ML IVPB ONE (07:11)
[2023-01-05] MEDS ORDERED: Potassium Chlor 20 meq TAB.ER PO ONE (07:11)
[2023-01-05 07:43] LABS: ABS Eosinophils 0.1 10^3/uL (0.0-0.5); ABS Lymphocytes 0.9 10^3/uL (1.0-4.8); ABS Monocytes 0.6 10^3/uL (0.0-0.9); ABS Neutrophils 7.2 10^3/uL (1.5-7.6); ABS Nucleated RBC 0.01 10^3/ul; Eosinophil % 0.7 %; Lymphocyte % 9.8 %; Nucleated Red Blood Cells % 0.1 /100 WBC (0.0-0.4)
[2023-01-05] MEDS: Venlafaxine 25 mg TAB (NF) PO SCH (09:19)
[2023-01-05] MEDS: KCL 20 MEQ/100 ML IVPREMIX 20 MEQ/100 ML BAG IV SCH ×4 (09:20→18:32)
[2023-01-05] MEDS ORDERED: Iodixanol (CONTRAST) 320 MG/ML 100 ML SDV IV ONE ×2 (11:34→15:42)
[2023-01-05 14:26] LABS: ABS Eosinophils 0.1 10^3/uL (0.0-0.5); ABS Monocytes 0.5 10^3/uL (0.0-0.9); ABS Neutrophils 6.6 10^3/uL (1.5-7.6); ABS Nucleated RBC 0.01 10^3/ul; Eosinophil % 0.9 %; Hematocrit 31.1 % (35-45); Hemoglobin 10.2 g/dL (11.5-14.3); Lymphocyte % 12.3 %; Mean Corpuscular Hemoglobin 32.7 pg (27-33); Mean Corpuscular Hgb Conc 32.9 g/dL (31-36); Mean Corpuscular Volume 99.5 fL (80-97); Mean Platelet Volume 7.4 fL (7.5-11.2); Nucleated Red Blood Cells % 0.1 /100 WBC (0.0-0.4); Platelet Count 63 10^3/uL (150-450); Red Blood Count 3.13 10^6/uL (3.63-4.92); Red Cell Distribution Width 15.7 % (12-17); White Blood Count 8.2 10^3/uL (3.8-11.8)
[2023-01-05 14:35] LABS: Anion Gap 11 mmol/L (2-16); Blood Urea Nitrogen 7 mg/dL (6-24); CO2 Carbon Dioxide 17 mmol/L (22-32); Calcium 7.5 mg/dL (8.6-10.3); Chloride 113 mmol/L (101-111); Glucose 114 mg/dL (70-100); Sodium 141 mmol/L (135-145); eGFR CKD-EPI 84.3 (>60)
[2023-01-05] MEDS ORDERED: NS 0.9% 500 ml BAG 500 ML IV ONE ×2 (14:55→19:04)
[2023-01-05 15:30] LABS: C Reactive Protein 107.09 mg/L (<8.01)
[2023-01-05 16:10] LABS: Activated Partial Thrombo Time 24.4 seconds (26.0-38.0); INR 0.95 (0.83-1.13)
[2023-01-05 16:20] LABS: ALT 7 U/L (7-52); AST 14 U/L (13-39); Albumin 2.5 g/dL (3.2-5.2); Albumin/Globulin Ratio 1.1 (1-3); Alkaline Phosphatase 71 U/L (35-149); Globulin 2.3 g/dL (2-4); Total Protein 4.8 g/dL (6.4-8.9)
[2023-01-05] MEDS: cefTRIAXone 2 gm/50 mL D5W 2 GM/50 ML BAG IV SCH (17:19)
[2023-01-05 18:08] LABS: Erythrocyte Sed Rate 45 mm/Hr (0-29)
[2023-01-05] MEDS ORDERED: Enoxaparin 40 MG/0.4 ML SYR SUBCUT SCH (21:00)
[2023-01-06 06:14] LABS: Hematocrit 28.5 % (35-45); Hemoglobin 9.6 g/dL (11.5-14.3); Mean Corpuscular Hemoglobin 33.2 pg (27-33); Mean Corpuscular Hgb Conc 33.8 g/dL (31-36); Mean Corpuscular Volume 98.2 fL (80-97); Mean Platelet Volume 7.4 fL (7.5-11.2); Platelet Count 64 10^3/uL (150-450); Red Blood Count 2.91 10^6/uL (3.63-4.92); Red Cell Distribution Width 15.3 % (12-17)
[2023-01-06 06:37] LABS: Albumin 2.6 g/dL (3.2-5.2); Albumin/Globulin Ratio 1.1 (1-3); Calcium 7.7 mg/dL (8.6-10.3); Creatinine, Serum 0.7 mg/dL (0.51-0.95); Globulin 2.4 g/dL (2-4); Magnesium 2.1 mg/dL (1.9-2.7); Potassium 3.1 mmol/L (3.5-5.0); Total Bilirubin 0.2 mg/dL (0.2-1.0); eGFR CKD-EPI 98.9 (>60)
[2023-01-06] MEDS ORDERED: Potassium Chlor 20 meq TAB.ER PO ONE ×2 (07:04→15:00)
[2023-01-06 07:11] LABS: ABS Monocytes 0.7 10^3/uL (0.0-0.9); ABS Neutrophils 6.2 10^3/uL (1.5-7.6); ABS Nucleated RBC 0.01 10^3/ul; Eosinophil % 0.5 %; Lymphocyte % 12.8 %; Nucleated Red Blood Cells % 0.1 /100 WBC (0.0-0.4)
[2023-01-06] MEDS: Venlafaxine 25 mg TAB (NF) PO SCH (08:52)
[2023-01-06] MEDS: cefTRIAXone 2 gm/50 mL D5W 2 GM/50 ML BAG IV SCH (17:48)
[2023-01-07 00:55] LABS: Calcium 7.2 mg/dL (8.6-10.3); Creatinine, Serum 0.75 mg/dL (0.51-0.95); Magnesium 1.8 mg/dL (1.9-2.7); Potassium 3.3 mmol/L (3.5-5.0); eGFR CKD-EPI 91.1 (>60)
[2023-01-07] MEDS ORDERED: Magnesium Sulf 4 GM/100 ML IV 4,000 MG/100 ML BAG IVPB ONE (01:31)
[2023-01-07] MEDS ORDERED: Potassium Chlor 20 meq TAB.ER PO ONE ×2 (01:31→07:18)
[2023-01-07 07:12] LABS: Hematocrit 26.9 % (35-45); Hemoglobin 9.1 g/dL (11.5-14.3); Mean Corpuscular Hemoglobin 32.9 pg (27-33); Mean Corpuscular Hgb Conc 33.9 g/dL (31-36); Mean Corpuscular Volume 97.2 fL (80-97); Red Blood Count 2.77 10^6/uL (3.63-4.92); Red Cell Distribution Width 15.2 % (12-17); White Blood Count 8.5 10^3/uL (3.8-11.8)
[2023-01-07 07:18] LABS: Calcium 7.5 mg/dL (8.6-10.3); Creatinine, Serum 0.72 mg/dL (0.51-0.95); Magnesium 3.5 mg/dL (1.9-2.7); Potassium 3.5 mmol/L (3.5-5.0); eGFR CKD-EPI 95.7 (>60)
[2023-01-07] MEDS ORDERED: Magnesium Sulfate IV 1GM/100ML 1 GM/100 ML BAG IV ONE (07:18)
[2023-01-07 07:55] LABS: ABS Eosinophils 0.1 10^3/uL (0.0-0.5); ABS Lymphocytes 1.3 10^3/uL (1.0-4.8); ABS Monocytes 0.8 10^3/uL (0.0-0.9); ABS Neutrophils 6.4 10^3/uL (1.5-7.6); Eosinophil % 0.7 %; Lymphocyte % 15.6 %; Mean Platelet Volume 7.7 fL (7.5-11.2); Platelet Count 52 10^3/uL (150-450)
[2023-01-07] MEDS ORDERED: NS 0.9% 500 ml BAG 500 ML IV ONE (10:35)
[2023-01-07] MEDS: Venlafaxine 25 mg TAB (NF) PO SCH (11:22)
[2023-01-07] MEDS: cefTRIAXone 2 gm/50 mL D5W 2 GM/50 ML BAG IV SCH (17:54)
[2023-01-07 18:42] LABS: Rapid COVID-19 Molecular Undetected (Undetected)
[2023-01-08 06:21] LABS: Hematocrit 26.8 % (35-45); Hemoglobin 9.1 g/dL (11.5-14.3); Mean Corpuscular Volume 97.1 fL (80-97); Mean Platelet Volume 7.9 fL (7.5-11.2); Platelet Count 51 10^3/uL (150-450); Red Blood Count 2.76 10^6/uL (3.63-4.92); Red Cell Distribution Width 14.8 % (12-17); White Blood Count 8.2 10^3/uL (3.8-11.8)
[2023-01-08 06:34] LABS: Calcium 7.6 mg/dL (8.6-10.3); Creatinine, Serum 0.79 mg/dL (0.51-0.95); Magnesium 2.1 mg/dL (1.9-2.7); Potassium 4.4 mmol/L (3.5-5.0); eGFR CKD-EPI 85.6 (>60)
[2023-01-08 07:23] LABS: ABS Eosinophils 0.1 10^3/uL (0.0-0.5); ABS Lymphocytes 1.4 10^3/uL (1.0-4.8); ABS Monocytes 0.7 10^3/uL (0.0-0.9); ABS Neutrophils 5.9 10^3/uL (1.5-7.6); ABS Nucleated RBC 0.02 10^3/ul; Eosinophil % 0.9 %; Lymphocyte % 17.3 %; Nucleated Red Blood Cells % 0.3 /100 WBC (0.0-0.4)
[2023-01-08] MEDS: Venlafaxine 25 mg TAB (NF) PO SCH (09:34)
[2023-01-08 10:42] VITALS: BP 95/70
== END 2023-01-08 13:15 | DRG 871 ==
LOC: EDHOLD 15:44 → ED 15:44 → MEDTELE 19:19 → SUATTDRO 19:19 → MEDTELE 21:41 → SUATTDRO 01-03 11:35
PROVIDERS: ADMIT Student in an Organized Health Care Education/Training Program; ATTEND Internal Medicine

== ENCOUNTER 2023-10-08 17:52 | Inpatient (IN) ==
[2023-10-08] MEDS: Lactated Ringers 1000 ml BAG 1,000 ML IV ONE (20:57)
[2023-10-08 21:03] LABS: Hematocrit 41.8 % (35-45); Hemoglobin 13.9 g/dL (11.5-14.3); Mean Corpuscular Hemoglobin 29.9 pg (27-33); Mean Corpuscular Hgb Conc 33.2 g/dL (31-36); Mean Corpuscular Volume 89.9 fL (80-97); Mean Platelet Volume 7.4 fL (7.5-11.2); Platelet Count 293 10^3/uL (150-450); Red Blood Count 4.65 10^6/uL (3.63-4.92); Red Cell Distribution Width 14.1 % (12-17); White Blood Count 20.3 10^3/uL (3.8-11.8)
[2023-10-08 21:06] LABS: ABS Eosinophils 9.3 10^3/uL (0.0-0.5); ABS Lymphocytes 2.7 10^3/uL (1.0-4.8); ABS Monocytes 0.9 10^3/uL (0.0-0.9); ABS Neutrophils 7.4 10^3/uL (1.5-7.6); ABS Nucleated RBC 0.01 10^3/ul; Eosinophil % 45.6 %; Lymphocyte % 13.1 %; Nucleated Red Blood Cells % 0.1 %/100WBC (0.0-0.8)
[2023-10-08 22:44] LABS: Albumin 4.5 g/dL (3.2-5.2); Albumin/Globulin Ratio 4.1 (1-3); Calcium 9.6 mg/dL (8.6-10.3); Creatinine, Serum 0.89 mg/dL (0.51-0.95); Globulin 1.1 g/dL (2-4); Potassium 2.9 mmol/L (3.5-5.0); Total Bilirubin 0.2 mg/dL (0.2-1.0); Total Protein 5.6 g/dL (6.4-8.9); eGFR CKD-EPI 73.7 (>60)
[2023-10-09] MEDS: Iohexol 350 (CONTRAST) 500 ML MDV IV ONE (03:29)
[2023-10-09] MEDS: Acetaminophen IV 1 GM/100ML 1,000 MG/100 ML BAG IV ONE (04:09)
[2023-10-09] MEDS: Potassium Chlor 20 meq TAB.ER PO ONE (04:55)
[2023-10-09] MEDS: KCL 10 MEQ/50 ML IVPREMIX 10 MEQ/50 ML BAG IV ONE (04:55)
[2023-10-09 05:23] LABS: C Reactive Protein 26.04 mg/L (<8.01)
[2023-10-09] MEDS: Morphine 4 MG/ML VIAL (1 ml) IV ONE (05:28)
[2023-10-09 08:14] LABS: Hemoglobin 12.8 g/dL (11.5-14.3); Mean Corpuscular Hemoglobin 29.7 pg (27-33); Mean Corpuscular Hgb Conc 32.7 g/dL (31-36); Mean Corpuscular Volume 90.6 fL (80-97); Mean Platelet Volume 7.5 fL (7.5-11.2); Platelet Count 256 10^3/uL (150-450); Red Blood Count 4.31 10^6/uL (3.63-4.92); Red Cell Distribution Width 14.2 % (12-17); White Blood Count 16.9 10^3/uL (3.8-11.8)
[2023-10-09 08:26] LABS: ABS Eosinophils 7.8 10^3/uL (0.0-0.5); ABS Monocytes 0.5 10^3/uL (0.0-0.9); ABS Neutrophils 6.5 10^3/uL (1.5-7.6); Eosinophil % 46.4 %; Lymphocyte % 11.6 %
[2023-10-09 08:35] LABS: TSH Ultra Thyroid Stim Horm 2.76 mcIU/mL (0.34-5.60)
[2023-10-09] MEDS: Lactated Ringers 1000 ml BAG 1,000 ML IV SCH (08:51)
[2023-10-09] MEDS: Enoxaparin 40 MG/0.4 ML SYR SUBCUT SCH (08:51)
[2023-10-09] MEDS ORDERED: Venlafaxine 25 mg TAB (NF) PO SCH (09:00)
[2023-10-09 09:11] LABS: Calcium 9.1 mg/dL (8.6-10.3); Creatinine, Serum 0.82 mg/dL (0.51-0.95); Magnesium 1.9 mg/dL (1.9-2.7); Potassium 3.2 mmol/L (3.5-5.0); eGFR CKD-EPI 81.3 (>60)
[2023-10-09] MEDS: KCL 20 MEQ/100 ML IVPREMIX 20 MEQ/100 ML BAG IV SCH (18:11)
[2023-10-09] MEDS: cefTRIAXone 1 gm/50 mL D5W 1 GM/50 ML BAG IV SCH (21:35)
[2023-10-09] MEDS: Ondansetron 4 mg VIAL 2 MG/ML 2 ml VIAL IV PRN (22:20)
[2023-10-09] MEDS: metroNIDAZOLE IV 500 MG/100ML 500 MG/100 ML BAG IVPB SCH (23:24)
[2023-10-10 06:54] LABS: Hematocrit 32.8 % (35-45); Mean Corpuscular Hgb Conc 33.5 g/dL (31-36); Mean Corpuscular Volume 89.8 fL (80-97); Mean Platelet Volume 7.5 fL (7.5-11.2); Platelet Count 225 10^3/uL (150-450); Red Blood Count 3.65 10^6/uL (3.63-4.92); Red Cell Distribution Width 14.4 % (12-17)
[2023-10-10 07:15] LABS: Calcium 8.5 mg/dL (8.6-10.3); Creatinine, Serum 0.67 mg/dL (0.51-0.95); Magnesium 1.5 mg/dL (1.9-2.7); Potassium 3.2 mmol/L (3.5-5.0); eGFR CKD-EPI 99.4 (>60)
[2023-10-10 07:16] LABS: ABS Eosinophils 3.1 10^3/uL (0.0-0.5); ABS Lymphocytes 1.1 10^3/uL (1.0-4.8); ABS Monocytes 0.6 10^3/uL (0.0-0.9); ABS Neutrophils 8.2 10^3/uL (1.5-7.6); Eosinophil % 24.2 %; Lymphocyte % 8.7 %
[2023-10-10] MEDS: metroNIDAZOLE IV 500 MG/100ML 500 MG/100 ML BAG IVPB SCH (07:19)
[2023-10-10 08:38] LABS: C Reactive Protein 13.22 mg/L (<8.01)
[2023-10-10] MEDS: KCL 20 MEQ/100 ML IVPREMIX 20 MEQ/100 ML BAG IV SCH (09:13)
[2023-10-10] MEDS: Magnesium Sulf 4 GM/100 ML IV 4,000 MG/100 ML BAG IVPB ONE (09:17)
[2023-10-10] MEDS: CMCS:Budesonide 3 mg CAP (NF) PO SCH (09:26)
[2023-10-10 11:19] LABS: Erythrocyte Sed Rate 5 mm/Hr (0-29)
[2023-10-11] MEDS: ELUXADOLINE 75 MG PO SCH (00:18)
[2023-10-11 06:32] LABS: Calcium 7.9 mg/dL (8.6-10.3); Creatinine, Serum 0.58 mg/dL (0.51-0.95); Magnesium 1.9 mg/dL (1.9-2.7); Potassium 3.1 mmol/L (3.5-5.0); eGFR CKD-EPI 102.9 (>60)
[2023-10-11 06:56] LABS: ABS Eosinophils 0.9 10^3/uL (0.0-0.5); ABS Lymphocytes 1.2 10^3/uL (1.0-4.8); ABS Monocytes 0.3 10^3/uL (0.0-0.9); ABS Neutrophils 2.8 10^3/uL (1.5-7.6); Eosinophil % 16.6 %; Hematocrit 29.2 % (35-45); Hemoglobin 9.9 g/dL (11.5-14.3); Lymphocyte % 22.8 %; Mean Corpuscular Hemoglobin 30.5 pg (27-33); Mean Corpuscular Hgb Conc 33.8 g/dL (31-36); Mean Corpuscular Volume 90.3 fL (80-97); Mean Platelet Volume 7.6 fL (7.5-11.2); Nucleated Red Blood Cells % 0.1 %/100WBC (0.0-0.8); Platelet Count 189 10^3/uL (150-450); Red Blood Count 3.23 10^6/uL (3.63-4.92); Red Cell Distribution Width 14.5 % (12-17); White Blood Count 5.2 10^3/uL (3.8-11.8)
[2023-10-11] MEDS: KCL 10 MEQ/50 ML IVPREMIX 10 MEQ/50 ML BAG IV ONE (11:11)
[2023-10-11] MEDS: Acetaminophen IV 1 GM/100ML 1,000 MG/100 ML BAG IV ONE (11:11)
[2023-10-11] MEDS: Potassium Chlor 20 meq TAB.ER PO ONE (11:12)
[2023-10-11] MEDS: Morphine 4 MG/ML VIAL (1 ml) IV ONE (11:12)
[2023-10-11] MEDS: Lactated Ringers 1000 ml BAG 1,000 ML IV ONE (11:24)
[2023-10-11] MEDS: Potassium Chloride LIQUID 20 MEQ/15 ML LIQUID PO ONE (11:24)
[2023-10-11] MEDS: KCL 20 MEQ/100 ML IVPREMIX 20 MEQ/100 ML BAG IV SCH (11:28)
[2023-10-12 08:29] LABS: ABS Eosinophils 0.3 10^3/uL (0.0-0.5); ABS Lymphocytes 1.2 10^3/uL (1.0-4.8); ABS Monocytes 0.3 10^3/uL (0.0-0.9); ABS Neutrophils 3.4 10^3/uL (1.5-7.6); Hematocrit 30.7 % (35-45); Hemoglobin 10.3 g/dL (11.5-14.3); Lymphocyte % 23.6 %; Mean Corpuscular Hemoglobin 30.2 pg (27-33); Mean Corpuscular Hgb Conc 33.4 g/dL (31-36); Mean Corpuscular Volume 90.3 fL (80-97); Nucleated Red Blood Cells % 0.1 %/100WBC (0.0-0.8); Platelet Count 209 10^3/uL (150-450); Red Cell Distribution Width 14.7 % (12-17); White Blood Count 5.1 10^3/uL (3.8-11.8)
[2023-10-12 09:17] LABS: Calcium 8.1 mg/dL (8.6-10.3); Creatinine, Serum 0.6 mg/dL (0.51-0.95); Magnesium 1.6 mg/dL (1.9-2.7); Potassium 3.8 mmol/L (3.5-5.0); eGFR CKD-EPI 102.1 (>60)
[2023-10-12] MEDS: Calcium Carb (TUMS) 500 mg CHEW TAB PO ONE (14:12)
[2023-10-12 15:20] LABS: Adenovirus F40/41 Negative (Negative); Astrovirus Negative (Negative); Cryptosporidium species Negative (Negative); Cyclospora cayetanensis Negative (Negative); Entamoeba histolytica Negative (Negative); Enteroaggregative E.coli(EAEC) Negative (Negative); Enteropathogenic Ecoli(EPEC) Negative (Negative); Enterotoxigenic Ecoli(ETEC) Negative (Negative); Norovirus GI/GII Negative (Negative); Plesiomonas shigelloides Negative (Negative); Salmonella species Negative (Negative); Sapovirus Negative (Negative); Shiga toxin producing E. coli Negative (Negative); Shigella/Enteroinvasive E.coli Negative (Negative); Specimen Source STOOL; Vibrio cholerae Negative (Negative); Yersinia species Negative (Negative)
[2023-10-12 19:02] LABS: Calprotectin 128 mcg/g
[2023-10-12] MEDS: Magnesium Sulfate 2 gm BAG 2 GM/50 ML BAG IVPB ONE (20:06)
[2023-10-13 08:05] LABS: ABS Eosinophils 0.1 10^3/uL (0.0-0.5); ABS Lymphocytes 1.2 10^3/uL (1.0-4.8); ABS Monocytes 0.4 10^3/uL (0.0-0.9); ABS Neutrophils 4.4 10^3/uL (1.5-7.6); Eosinophil % 2.1 %; Hematocrit 32.6 % (35-45); Hemoglobin 10.7 g/dL (11.5-14.3); Lymphocyte % 19.6 %; Mean Corpuscular Hemoglobin 29.9 pg (27-33); Mean Corpuscular Hgb Conc 32.8 g/dL (31-36); Mean Corpuscular Volume 91.3 fL (80-97); Mean Platelet Volume 7.1 fL (7.5-11.2); Platelet Count 227 10^3/uL (150-450); Red Blood Count 3.58 10^6/uL (3.63-4.92); Red Cell Distribution Width 14.4 % (12-17); White Blood Count 6.1 10^3/uL (3.8-11.8)
[2023-10-13 08:48] LABS: Calcium 8.2 mg/dL (8.6-10.3); Creatinine, Serum 0.61 mg/dL (0.51-0.95); Potassium 3.4 mmol/L (3.5-5.0); eGFR CKD-EPI 101.7 (>60)
[2023-10-13] MEDS: KCL 20 MEQ/100 ML IVPREMIX 20 MEQ/100 ML BAG IV ONE (09:04)
[2023-10-14 09:57] LABS: Calcium 8.4 mg/dL (8.6-10.3); Creatinine, Serum 0.68 mg/dL (0.51-0.95); Magnesium 1.8 mg/dL (1.9-2.7); Potassium 3.2 mmol/L (3.5-5.0)
[2023-10-14 10:24] VITALS: BP 117/75
[2023-10-14 11:50] LABS: Rapid COVID-19 Molecular Undetected (Undetected)
[2023-10-14] MEDS: Potassium EFFERVES 25 meq TAB PO ONE (12:01)
== END 2023-10-14 13:45 | DRG 392 ==
LOC: ED 17:52 → MEDTELE 17:52 → EDHOLD 17:52 → MEDTELE 10-09 16:25 → SUATTDRO 10-10 14:00 → SSU 10-11 12:44 → MED 10-13 14:27
PROVIDERS: ADMIT Internal Medicine; ATTEND Internal Medicine